=== PATIENT | male | born 1940 | race Caucasian/White ===

== ENCOUNTER 2023-06-11 13:59 | Outpatient (CLI) | payer OTHER | END 2023-06-11 14:00 | disposition home or self-care (01) | LOC: CSHLAB 13:59 | PROVIDERS: ATTEND Orthopaedic Surgery | DX: Z01.818 Encounter for other preprocedural examination (principal); M46.1 Sacroiliitis, not elsewhere classified | CPT/HCPCS: 93005; 93010 ==

== ENCOUNTER 2023-06-13 05:47 | Inpatient (IN) | payer OTHER ==
[2023-06-11 15:07] VITALS: BMI 28.0
[2023-06-13] MEDS ORDERED: Bupivacaine 0.25% HCL 30 ML VIAL ONE (06:28)
[2023-06-13] MEDS ORDERED: EPINEPHrine 1 MG/ML AMP ONE (06:28)
[2023-06-13] MEDS ORDERED: Famotidine/PF 20 mg/2ml Vial ONE (07:17)
[2023-06-13] MEDS ORDERED: PROPOFOL 20 ML ONE (07:18)
[2023-06-13] MEDS ORDERED: Fentanyl 250 MCG/5 ML VIAL ONE (07:19)
[2023-06-13] MEDS ORDERED: Succinylcholine 200 MG/10 ml SYRINGE FS ONE (07:21)
[2023-06-13] MEDS ORDERED: Ketamine 50 MG/ML (10ML VIAL) ONE (07:23)
[2023-06-13] MEDS ORDERED: Propofol 1,000 MG/100 ML VIAL IV ONE (07:24)
[2023-06-13] MEDS ORDERED: Phenylephrine 10 MG/ML VIAL ONE (07:24)
[2023-06-13 07:26] LABS: Hemoglobin 12.1 g/dL (13.5-17.5); Mean Corpuscular HGB CONC 33.8 g/dL (32.0-36.0); Mean Corpuscular Hemoglobin 31.6 pg (27.0-33.0); Mean Corpuscular Volume 93.5 fl (81.2-95.1); Mean Platelet Volume 8.9 fl (7.4-10.4); Platelet Count 204 10x3/uL (150-450); RBC Distribution Width 13.3 % (11.5-14.5); Red Blood Cell (RBC) Count 3.83 10x6/uL (4.32-5.72)
[2023-06-13] MEDS ORDERED: Clindamycin/D5W 900 mg/50 ml Premix Bag ONE (07:35)
[2023-06-13 07:37] LABS: PTT 27.6 sec (22.0-33.0); Prothrombin Time 10.6 sec (9.5-12.1)
[2023-06-13 07:42] LABS: Anion Gap 14 mmol/L (10-20); BUN (Urea Nitrogen) 10 mg/dL (8.4-25.7); Calc. Creatinine Clearance 90 mL/min (70-130); Calcium 8.7 mg/dL (7.8-10.44); Carbon Dioxide 24 mmol/L (23-31); Chloride 103 mmol/L (98-107); Estimated GFR 86; Glucose 98 mg/dL (83-110); Sodium 138 mmol/L (136-145)
[2023-06-13] MEDS ORDERED: Ondansetron PF 4 MG/2 ML Vial ONE ×2 (07:43→12:02)
[2023-06-13] MEDS ORDERED: ePHEDrine Sulfate 50 MG/10 ML VIAL ONE (08:21)
[2023-06-13] MEDS ORDERED: Dexamethasone 20 MG/5 ML VIAL ONE (08:23)
[2023-06-13] MEDS ORDERED: PHENYLEPHRINE-NS 100 MCG/ML 10 ML SYRINGE ONE ×2 (08:52→09:24)
[2023-06-13] MEDS ORDERED: Albumin 25% 25 GM/100 ML BOT IVPB SCH (09:30)
[2023-06-13] MEDS ORDERED: Vasopressin 20 UNITS/ML VIAL ONE ×2 (09:35→09:38)
[2023-06-13] MEDS ORDERED: TETANUS, DIPHTHERIA TOX,ADULT (TDVAX) 0.5 ML VIAL IM ONE ×2 (09:55→15:45)
[2023-06-13] MEDS ORDERED: Metoclopramide HCl 10 MG TAB PO PRN (09:59)
[2023-06-13] MEDS ORDERED: Acetaminophen 500 MG TAB PO PRN (09:59)
[2023-06-13] MEDS ORDERED: Communication Order-Pharmacy FS SCH (10:00)
[2023-06-13] MEDS ORDERED: HYDROmorphone 0.5 MG/0.5 ML SYRINGE ONE ×2 (10:43→11:16)
[2023-06-13] MEDS: Trihexyphenidyl 2 MG TAB PO SCH ×2 (15:59→19:59)
[2023-06-13] MEDS: Clindamycin/D5W 600 MG in Premix Bag 1 BAG IVPB SCH (16:05)
[2023-06-13] MEDS: Morphine 4 MG/ML VIAL SLOW IVP PRN ×2 (17:52→19:51)
[2023-06-13] MEDS: Aspirin 81 mg Enteric Coated Tablet PO SCH (19:58)
[2023-06-13] MEDS: Tamsulosin HCl 0.4 MG CAP PO SCH (19:58)
[2023-06-13] MEDS ORDERED: Famotidine 20 MG TAB PO SCH (21:00)
[2023-06-13] MEDS: HYDROcodone/Acetaminophen 10/325 mg Tablet PO PRN (21:25)
[2023-06-14] MEDS: Clindamycin/D5W 600 MG in Premix Bag 1 BAG IVPB SCH (00:03)
[2023-06-14] MEDS: Morphine 4 MG/ML VIAL SLOW IVP PRN ×2 (03:06→05:06)
[2023-06-14] MEDS ORDERED: Potassium Bicarbonate/Cit Ac 20 MEQ TAB PO SCH (08:15)
[2023-06-14] MEDS: Potassium Chloride 20 MEQ in Premix Bag 1 BAG IVPB SCH ×2 (08:26→09:57)
[2023-06-14] MEDS: Amiodarone 200 MG TAB PO SCH (08:26)
[2023-06-14] MEDS: Trihexyphenidyl 2 MG TAB PO SCH ×3 (08:27→22:31)
[2023-06-14] MEDS: Aspirin 81 mg Enteric Coated Tablet PO SCH ×2 (08:27→22:30)
[2023-06-14] MEDS: Dicyclomine 10 MG CAP PO PRN (08:27)
[2023-06-14] MEDS: Tamsulosin HCl 0.4 MG CAP PO SCH (22:30)
[2023-06-15] MEDS: Morphine 4 MG/ML VIAL SLOW IVP PRN ×4 (03:02→21:00)
[2023-06-15 06:41] LABS: Anion Gap 14 mmol/L (10-20); BUN (Urea Nitrogen) 16 mg/dL (8.4-25.7); Calc. Creatinine Clearance 76 mL/min (70-130); Calcium 8.2 mg/dL (7.8-10.44); Carbon Dioxide 23 mmol/L (23-31); Chloride 105 mmol/L (98-107); Estimated GFR 71; Glucose 107 mg/dL (83-110); Sodium 138 mmol/L (136-145)
[2023-06-15] MEDS: Amiodarone 200 MG TAB PO SCH (08:17)
[2023-06-15] MEDS: Dicyclomine 10 MG CAP PO PRN (08:17)
[2023-06-15] MEDS: Trihexyphenidyl 2 MG TAB PO SCH ×3 (08:17→20:50)
[2023-06-15] MEDS: Aspirin 81 mg Enteric Coated Tablet PO SCH ×2 (08:17→20:50)
[2023-06-15] MEDS: Tamsulosin HCl 0.4 MG CAP PO SCH (20:50)
[2023-06-16] MEDS: HYDROcodone/Acetaminophen 10/325 mg Tablet PO PRN ×3 (01:06→17:32)
[2023-06-16] MEDS: Aspirin 81 mg Enteric Coated Tablet PO SCH ×2 (10:12→21:07)
[2023-06-16] MEDS: Amiodarone 200 MG TAB PO SCH (10:12)
[2023-06-16] MEDS: Trihexyphenidyl 2 MG TAB PO SCH ×3 (10:13→21:07)
[2023-06-16] MEDS: Tamsulosin HCl 0.4 MG CAP PO SCH (21:06)
[2023-06-16] MEDS: Morphine 4 MG/ML VIAL SLOW IVP PRN (21:06)
[2023-06-16] MEDS: Apixaban 5 MG TAB PO SCH (21:07)
[2023-06-17 04:54] LABS: Hemoglobin 7.6 g/dL (13.5-17.5); Mean Corpuscular Hemoglobin 31.5 pg (27.0-33.0); Mean Corpuscular Volume 95.4 fl (81.2-95.1); Mean Platelet Volume 8.8 fl (7.4-10.4); Platelet Count 179 10x3/uL (150-450); RBC Distribution Width 13.6 % (11.5-14.5); Red Blood Cell (RBC) Count 2.41 10x6/uL (4.32-5.72); White Blood Cell (WBC) Count 6.5 10x3/uL (3.5-10.5)
[2023-06-17 05:10] LABS: Anion Gap 12 mmol/L (10-20); BUN (Urea Nitrogen) 12 mg/dL (8.4-25.7); Calc. Creatinine Clearance 95 mL/min (70-130); Calcium 7.9 mg/dL (7.8-10.44); Carbon Dioxide 26 mmol/L (23-31); Chloride 101 mmol/L (98-107); Estimated GFR 87; Glucose 107 mg/dL (83-110); Sodium 135 mmol/L (136-145)
[2023-06-17] MEDS: Amiodarone 200 MG TAB PO SCH (09:07)
[2023-06-17 09:18] LABS: Hemoglobin 8.6 g/dL (13.5-17.5)
[2023-06-17] MEDS: Apixaban 5 MG TAB PO SCH ×2 (10:08→21:57)
[2023-06-17] MEDS: Trihexyphenidyl 2 MG TAB PO SCH ×3 (10:09→21:57)
[2023-06-17] MEDS: Aspirin 81 mg Enteric Coated Tablet PO SCH ×2 (10:09→21:57)
[2023-06-17] MEDS: Tamsulosin HCl 0.4 MG CAP PO SCH (21:57)
[2023-06-18 04:15] LABS: Hemoglobin 7.7 g/dL (13.5-17.5); Mean Corpuscular HGB CONC 33.3 g/dL (32.0-36.0); Mean Corpuscular Hemoglobin 31.3 pg (27.0-33.0); Mean Corpuscular Volume 93.9 fl (81.2-95.1); Mean Platelet Volume 8.5 fl (7.4-10.4); Platelet Count 192 10x3/uL (150-450); RBC Distribution Width 13.7 % (11.5-14.5); Red Blood Cell (RBC) Count 2.46 10x6/uL (4.32-5.72); White Blood Cell (WBC) Count 7.3 10x3/uL (3.5-10.5)
[2023-06-18 04:29] LABS: Anion Gap 10 mmol/L (10-20); BUN (Urea Nitrogen) 13 mg/dL (8.4-25.7); Calc. Creatinine Clearance 109 mL/min (70-130); Carbon Dioxide 27 mmol/L (23-31); Chloride 99 mmol/L (98-107); Estimated GFR 91; Glucose 106 mg/dL (83-110); Potassium 3.9 mmol/L (3.5-5.1); Sodium 132 mmol/L (136-145)
[2023-06-18] MEDS: Aspirin 81 mg Enteric Coated Tablet PO SCH (10:34)
[2023-06-18] MEDS: Amiodarone 200 MG TAB PO SCH (10:34)
[2023-06-18] MEDS: Apixaban 5 MG TAB PO SCH (10:34)
[2023-06-18] MEDS: Trihexyphenidyl 2 MG TAB PO SCH (10:34)
[2023-06-18 12:43] VITALS: BP 149/68; TEMP 98.4
== END 2023-06-18 15:02 | DRG 552 ==
LOC: CSHSDC 05:47 → CSHTELE 09:55 → OBSVTOIN 06-16 14:38
PROVIDERS: ADMIT Orthopaedic Surgery; ATTEND Orthopaedic Surgery
DX: M46.1 Sacroiliitis, not elsewhere classified (principal); N40.0 Benign prostatic hyperplasia without lower urinary tract symptoms; I10 Essential (primary) hypertension; G43.909 Migraine, unspecified, not intractable, without status migrainosus; Z96.652 Presence of left artificial knee joint; I25.10 Atherosclerotic heart disease of native coronary artery without angina pectoris; R25.1 Tremor, unspecified; F17.210 Nicotine dependence, cigarettes, uncomplicated; E87.6 Hypokalemia; D64.9 Anemia, unspecified; R60.0 Localized edema; Z88.0 Allergy status to penicillin; Z88.8 Allergy status to other drugs, medicaments and biological substances; Z79.01 Long term (current) use of anticoagulants; Z79.899 Other long term (current) drug therapy; Z95.0 Presence of cardiac pacemaker
CPT/HCPCS: 36415; 72202; 80048; 85027; 85610; 85730; 86850; 86900; 86901; 90714; 94760; 94762; C1713; C1889; J0171; J1100; J1170; J2270; J2370; J2405; J2704; J3010; J3480; J3490; P9045; P9047; S0020; S0028

== ENCOUNTER 2023-07-09 10:02 | Inpatient (IN) | payer OTHER ==
[~2023-07-09 10:02] MED LIST: Iopamidol 370 76% 100 ML VIAL ONE
[2023-07-09] MEDS ORDERED: Nitroglycerin 50 MG/250 ML BOT 0 ML ONE (10:12)
[2023-07-09] MEDS ORDERED: Lidocaine 1% (PF) 30 ML VIAL ONE (10:12)
[2023-07-09] MEDS ORDERED: Heparin 10,000 UNITS/ 10 ML VIAL ONE (10:12)
[2023-07-09] MEDS ORDERED: Adenosine 6 MG/2 ML VIAL ONE (10:12)
[2023-07-09] MEDS ORDERED: Atropine Sulfate 0.4 mg/1 ml Vial ONE (10:13)
[2023-07-09 10:33] LABS: Red Blood Cell (RBC) Count 3.36 10x6/uL (4.32-5.72); White Blood Cell (WBC) Count 5.1 10x3/uL (3.5-10.5)
[2023-07-09 10:34] LABS: #Monocytes 0.3 10x3/uL (0.0-1.1); #Neutrophils 4.2 10x3/uL (1.5-8.4); %Basophils 0.4 % (0.0-2.0); %Eosinophils 0.2 % (0.0-6.0); %Monocytes 6.7 % (0.0-10.0); %Neutrophils 82.1 % (40.0-75.0); Hematocrit 31.3 % (38.8-50.0); Hemoglobin 10.3 g/dL (13.5-17.5); Mean Corpuscular HGB CONC 32.9 g/dL (32.0-36.0); Mean Corpuscular Hemoglobin 30.7 pg (27.0-33.0); Mean Corpuscular Volume 93.2 fl (81.2-95.1); Mean Platelet Volume 8.6 fl (7.4-10.4); Platelet Count 231 10x3/uL (150-450); RBC Distribution Width 14.6 % (11.5-14.5)
[2023-07-09 10:38] LABS: ALT (SGPT) 24 U/L (8-55); AST (SGOT) 33 U/L (5-34); Albumin 3.2 g/dL (3.4-4.8); Alkaline Phosphatase 115 U/L (40-110); Anion Gap 15 mmol/L (10-20); BUN (Urea Nitrogen) 8 mg/dL (8.4-25.7); Bilirubin, Total 0.8 mg/dL (0.2-1.2); Calc. Creatinine Clearance 0 mL/min (70-130); Calcium 8.1 mg/dL (7.8-10.44); Carbon Dioxide 22 mmol/L (23-31); Chloride 101 mmol/L (98-107); Estimated GFR 87; Globulin 2.4 g/dL (2.4-3.5); Glucose 156 mg/dL (83-110); Potassium 3.9 mmol/L (3.5-5.1); Protein, Total 5.6 g/dL (5.8-8.1); Sodium 134 mmol/L (136-145)
[2023-07-09] MEDS ORDERED: Senokot S 8.6-50 MG TAB PO PRN (14:30)
[2023-07-09] MEDS ORDERED: Sodium Chloride 0.9% 1,000 ML IV SCH (14:30)
[2023-07-09] MEDS ORDERED: Nitroglycerin 0.4 MG TAB (25 Tab Bottle) SL PRN (14:32)
[2023-07-09] MEDS ORDERED: Acetaminophen 500 MG TAB PO PRN (17:50)
[2023-07-09] MEDS ORDERED: Electrolyte Replacement Protocol 1 EACH FS SCH (18:00)
[2023-07-09] MEDS ORDERED: Acetaminophen/Codeine 30-300mg Tablet ONE ×2 (18:12→23:34)
[2023-07-09] MEDS ORDERED: Bacitracin 1 PK ONE (18:27)
[2023-07-09 18:44] LABS: Troponin I 0.026 ng/mL (< 0.028)
[2023-07-09] MEDS ORDERED: Famotidine 20 MG TAB PO SCH ×2 (21:00→22:45)
[2023-07-09] MEDS ORDERED: Dextrose 50% Abboject 50 ML SYRINGE ONE (21:05)
[2023-07-09] MEDS ORDERED: Calcium Gluc 4.6 MEQ/10 ML (100 MG/ML) ONE (21:48)
[2023-07-09] MEDS ORDERED: Sodium Bicarb 50 MEQ/50 ML Abboject 8.4% SYRINGE ONE (21:48)
[2023-07-09] MEDS ORDERED: Sodium Bicarb 50 MEQ/50 ML VIAL ONE (21:49)
[2023-07-09] MEDS ORDERED: Apixaban 5 MG TAB ONE (22:09)
[2023-07-09] MEDS ORDERED: Tamsulosin HCl 0.4 MG CAP ONE (22:10)
[2023-07-09] MEDS ORDERED: Famotidine 20 MG TAB ONE (22:10)
[2023-07-09] MEDS ORDERED: Metoprolol Tartrate 25 MG TAB ONE (22:12)
[2023-07-09] MEDS ORDERED: Metoprolol Tartrate 25 MG TAB PO SCH (22:30)
[2023-07-09] MEDS ORDERED: Trihexyphenidyl 2 MG TAB PO SCH (22:45)
[2023-07-09] MEDS ORDERED: Apixaban 5 MG TAB PO SCH (22:45)
[2023-07-09 23:00] LABS: Magnesium 1.8 mg/dL (1.6-2.6); Potassium 4.3 mmol/L (3.5-5.1)
[2023-07-09] MEDS: Tamsulosin HCl 0.4 MG CAP PO SCH (23:29)
[2023-07-09] MEDS: Acetaminophen/Codeine 30-300mg Tablet PO PRN (23:36)
[2023-07-09] MEDS ORDERED: Magnesium Sulfate/D5W 1 GM/100 ML BAG IVPB SCH (23:45)
[2023-07-10] MEDS ORDERED: Ondansetron PF 4 MG/2 ML Vial ONE (04:06)
[2023-07-10 04:17] VITALS: BMI 27.6
[2023-07-10] MEDS: Ondansetron ODT 4 MG TAB PO PRN ×2 (04:25→18:04)
[2023-07-10] MEDS: Ondansetron PF 4 MG/2 ML Vial IVP PRN ×2 (04:26→14:10)
[2023-07-10] MEDS ORDERED: Acetaminophen/Codeine 30-300mg Tablet ONE (05:43)
[2023-07-10] MEDS: Acetaminophen/Codeine 30-300mg Tablet PO PRN (06:20)
[2023-07-10] MEDS ORDERED: Apixaban 5 MG TAB PO SCH (09:00)
[2023-07-10] MEDS ORDERED: Apixaban 5 MG TAB ONE (09:34)
[2023-07-10] MEDS ORDERED: Metoprolol Tartrate 25 MG TAB ONE (09:34)
[2023-07-10] MEDS ORDERED: Famotidine 20 MG TAB ONE (09:35)
[2023-07-10 09:50] LABS: Bilirubin Neg (Negative); Blood, Urine 150 (Negative); Clarity Clear (Clear); Glucose, Urine (Dipstick) Normal (Negative); Ketone, Urine 5 mg/dL (Negative); Leukocyte Negative (Negative); Nitrite Negative (Negative); Protein, Urine (Dipstick) 15 mg/dl (Neg-Trace)
[2023-07-10 09:57] LABS: RBC/HPF 0-3 HPF (0-3); WBC/HPF 0-3 HPF (0-3)
[2023-07-10 09:58] LABS: Bacteria/HPF Rare-Few HPF (None Seen); Squamous Epithelial None Seen HPF (0-3)
[2023-07-10] MEDS: Famotidine 20 MG TAB PO SCH ×2 (10:04→21:17)
[2023-07-10] MEDS: Amiodarone 200 MG TAB PO SCH (10:04)
[2023-07-10] MEDS: Trihexyphenidyl 2 MG TAB PO SCH ×3 (10:06→21:16)
[2023-07-10] MEDS ORDERED: Communication Order-Pharmacy FS PRN (12:53)
[2023-07-10] MEDS: Tamsulosin HCl 0.4 MG CAP PO SCH (21:17)
[2023-07-11 04:58] LABS: #Monocytes 0.6 10x3/uL (0.0-1.1); #Neutrophils 4.7 10x3/uL (1.5-8.4); %Basophils 0.3 % (0.0-2.0); %Eosinophils 0.7 % (0.0-6.0); %Lymphocytes 7.7 % (18.0-47.0); %Monocytes 10.7 % (0.0-10.0); %Neutrophils 80.3 % (40.0-75.0); Hematocrit 28.1 % (38.8-50.0); Hemoglobin 9.1 g/dL (13.5-17.5); Mean Corpuscular HGB CONC 32.4 g/dL (32.0-36.0); Mean Corpuscular Hemoglobin 30.6 pg (27.0-33.0); Mean Corpuscular Volume 94.6 fl (81.2-95.1); Mean Platelet Volume 8.7 fl (7.4-10.4); Platelet Count 185 10x3/uL (150-450); RBC Distribution Width 14.9 % (11.5-14.5); Red Blood Cell (RBC) Count 2.97 10x6/uL (4.32-5.72); White Blood Cell (WBC) Count 5.8 10x3/uL (3.5-10.5)
[2023-07-11 05:10] LABS: Anion Gap 14 mmol/L (10-20); BUN (Urea Nitrogen) 9 mg/dL (8.4-25.7); Calc. Creatinine Clearance 102 mL/min (70-130); Calcium 8.2 mg/dL (7.8-10.44); Carbon Dioxide 22 mmol/L (23-31); Chloride 103 mmol/L (98-107); Estimated GFR 90; Glucose 97 mg/dL (83-110); Potassium 3.9 mmol/L (3.5-5.1); Sodium 135 mmol/L (136-145)
[2023-07-11] MEDS: Acetaminophen/Codeine 30-300mg Tablet PO PRN ×2 (08:13→23:44)
[2023-07-11] MEDS: Amiodarone 200 MG TAB PO SCH (08:14)
[2023-07-11] MEDS: Famotidine 20 MG TAB PO SCH ×2 (08:14→23:30)
[2023-07-11] MEDS: Trihexyphenidyl 2 MG TAB PO SCH ×3 (08:15→23:29)
[2023-07-11] MEDS ORDERED: Iopamidol 300 61% 100 ML VIAL FS ONE (09:16)
[2023-07-11] MEDS: Lidocaine/Transparent Dressing 1 EACH KIT TP PRN ×2 (11:12→23:29)
[2023-07-11] MEDS: Ondansetron ODT 4 MG TAB PO PRN (13:12)
[2023-07-11] MEDS: Morphine 2 MG/ML VIAL SLOW IVP PRN (13:12)
[2023-07-11] MEDS ORDERED: Heparin 10,000 UNITS/ 10 ML VIAL ONE (16:53)
[2023-07-11] MEDS ORDERED: Nitroglycerin 50 MG/250 ML BOT 250 ML ONE (16:53)
[2023-07-11] MEDS ORDERED: Lidocaine 1% (PF) 30 ML VIAL ONE (16:53)
[2023-07-11] MEDS ORDERED: Sodium Chloride 0.9% 1,000 ML ONE (16:54)
[2023-07-11] MEDS ORDERED: Adenosine 6 MG/2 ML VIAL ONE (16:54)
[2023-07-11] MEDS ORDERED: fentaNYL 50 mcg/mL 1 mL Vial ONE ×2 (16:55→18:23)
[2023-07-11] MEDS ORDERED: Midazolam HCl 2 mg/2 ml Vial ONE (16:55)
[2023-07-11] MEDS ORDERED: Midazolam HCl 5 mg/5 ml Vial ONE (18:26)
[2023-07-11] MEDS ORDERED: Clopidogrel Bisulfate 300 MG TAB ONE (18:58)
[2023-07-11] MEDS ORDERED: VANCOMYCIN 2 GRAM/400 ML BAG 2 GM in Premix Bag 1 BAG IVPB SCH (23:00)
[2023-07-11] MEDS: Tamsulosin HCl 0.4 MG CAP PO SCH (23:30)
[2023-07-11] MEDS: Atorvastatin Calcium 40 MG TAB PO SCH (23:30)
[2023-07-12] MEDS: Morphine 2 MG/ML VIAL SLOW IVP PRN ×4 (01:16→16:56)
[2023-07-12] MEDS: Ondansetron ODT 4 MG TAB PO PRN ×2 (04:25→22:06)
[2023-07-12] MEDS ORDERED: Aspirin 81 mg Enteric Coated Tablet PO SCH ×2 (09:00)
[2023-07-12] MEDS: Vancomycin HCl 1 GM in Sodium Chloride 0.9% 250 ML 250 ML IVPB SCH (10:33)
[2023-07-12] MEDS: Clopidogrel Bisulfate 75 MG TAB PO SCH (10:34)
[2023-07-12] MEDS: Amiodarone 200 MG TAB PO SCH (10:34)
[2023-07-12] MEDS: Famotidine 20 MG TAB PO SCH ×2 (10:35→21:43)
[2023-07-12] MEDS: Trihexyphenidyl 2 MG TAB PO SCH ×3 (10:36→21:44)
[2023-07-12] MEDS: Acetaminophen/Codeine 30-300mg Tablet PO PRN ×3 (10:58→22:06)
[2023-07-12] MEDS: Lidocaine/Transparent Dressing 1 EACH KIT TP PRN ×2 (12:06→21:44)
[2023-07-12] MEDS ORDERED: Apixaban 5 MG TAB PO SCH (21:00)
[2023-07-12] MEDS: Tamsulosin HCl 0.4 MG CAP PO SCH (21:42)
[2023-07-12] MEDS: Cefepime 2 GM in Sodium Chloride 0.9% 100 ML IVPB SCH (21:42)
[2023-07-12] MEDS: Atorvastatin Calcium 40 MG TAB PO SCH (21:43)
[2023-07-13] MEDS: Vancomycin HCl 1 GM in Sodium Chloride 0.9% 250 ML 250 ML IVPB SCH ×2 (00:10→16:46)
[2023-07-13] MEDS: Morphine 2 MG/ML VIAL SLOW IVP PRN (04:30)
[2023-07-13] MEDS: Acetaminophen/Codeine 30-300mg Tablet PO PRN (04:31)
[2023-07-13] MEDS: Ondansetron ODT 4 MG TAB PO PRN (04:31)
[2023-07-13 05:33] LABS: Hematocrit 20.5 % (38.8-50.0); Hemoglobin 6.6 g/dL (13.5-17.5); Mean Corpuscular HGB CONC 32.2 g/dL (32.0-36.0); Mean Corpuscular Hemoglobin 30.6 pg (27.0-33.0); Mean Corpuscular Volume 94.9 fl (81.2-95.1); Mean Platelet Volume 8.6 fl (7.4-10.4); Platelet Count 173 10x3/uL (150-450); Red Blood Cell (RBC) Count 2.16 10x6/uL (4.32-5.72); White Blood Cell (WBC) Count 8.8 10x3/uL (3.5-10.5)
[2023-07-13 05:48] LABS: Anion Gap 17 mmol/L (10-20); BUN (Urea Nitrogen) 18 mg/dL (8.4-25.7); Calc. Creatinine Clearance 87 mL/min (70-130); Calcium 7.9 mg/dL (7.8-10.44); Carbon Dioxide 19 mmol/L (23-31); Chloride 106 mmol/L (98-107); Estimated GFR 84; Glucose 114 mg/dL (83-110); Sodium 138 mmol/L (136-145)
[2023-07-13] MEDS: Amiodarone 200 MG TAB PO SCH (09:23)
[2023-07-13] MEDS: Clopidogrel Bisulfate 75 MG TAB PO SCH (09:23)
[2023-07-13] MEDS: Cefepime 2 GM in Sodium Chloride 0.9% 100 ML IVPB SCH ×2 (09:23→21:00)
[2023-07-13] MEDS: Trihexyphenidyl 2 MG TAB PO SCH ×3 (09:24→21:00)
[2023-07-13] MEDS: Famotidine 20 MG TAB PO SCH ×2 (09:24→21:04)
[2023-07-13] MEDS: Ondansetron PF 4 MG/2 ML Vial IVP PRN ×2 (09:31→21:11)
[2023-07-13 10:09] LABS: Vancomycin, Trough 19.8 ug/mL
[2023-07-13] MEDS ORDERED: Bisacodyl 10 MG SUPP PR SCH (12:30)
[2023-07-13 19:49] LABS: Hematocrit 23.4 % (38.8-50.0); Hemoglobin 7.8 g/dL (13.5-17.5); Mean Corpuscular HGB CONC 33.3 g/dL (32.0-36.0); Mean Corpuscular Hemoglobin 31.1 pg (27.0-33.0); Mean Corpuscular Volume 93.2 fl (81.2-95.1); Mean Platelet Volume 8.8 fl (7.4-10.4); Platelet Count 175 10x3/uL (150-450); RBC Distribution Width 16.2 % (11.5-14.5); Red Blood Cell (RBC) Count 2.51 10x6/uL (4.32-5.72); White Blood Cell (WBC) Count 9.7 10x3/uL (3.5-10.5)
[2023-07-13] MEDS: Atorvastatin Calcium 40 MG TAB PO SCH (21:00)
[2023-07-13] MEDS: Tamsulosin HCl 0.4 MG CAP PO SCH (21:00)
[2023-07-14 05:06] LABS: Hematocrit 22.1 % (38.8-50.0); Hemoglobin 7.2 g/dL (13.5-17.5); Mean Corpuscular HGB CONC 32.6 g/dL (32.0-36.0); Mean Corpuscular Hemoglobin 29.9 pg (27.0-33.0); Mean Corpuscular Volume 91.7 fl (81.2-95.1); Mean Platelet Volume 8.6 fl (7.4-10.4); Platelet Count 172 10x3/uL (150-450); RBC Distribution Width 16.4 % (11.5-14.5); Red Blood Cell (RBC) Count 2.41 10x6/uL (4.32-5.72); White Blood Cell (WBC) Count 8.2 10x3/uL (3.5-10.5)
[2023-07-14 05:12] LABS: Anion Gap 16 mmol/L (10-20); BUN (Urea Nitrogen) 22 mg/dL (8.4-25.7); Calc. Creatinine Clearance 94 mL/min (70-130); Calcium 8.2 mg/dL (7.8-10.44); Carbon Dioxide 19 mmol/L (23-31); Chloride 106 mmol/L (98-107); Estimated GFR 87; Glucose 108 mg/dL (83-110); Potassium 4.4 mmol/L (3.5-5.1); Sodium 137 mmol/L (136-145)
[2023-07-14] MEDS: Ondansetron PF 4 MG/2 ML Vial IVP PRN ×2 (06:51→13:17)
[2023-07-14] MEDS: Morphine 2 MG/ML VIAL SLOW IVP PRN ×2 (06:54→13:16)
[2023-07-14] MEDS: Trihexyphenidyl 2 MG TAB PO SCH ×3 (09:42→20:31)
[2023-07-14] MEDS: Aspirin 81 mg Enteric Coated Tablet PO SCH (09:43)
[2023-07-14] MEDS: Amiodarone 200 MG TAB PO SCH (09:43)
[2023-07-14] MEDS: Clopidogrel Bisulfate 75 MG TAB PO SCH (09:43)
[2023-07-14] MEDS: Famotidine 20 MG TAB PO SCH ×2 (09:43→20:30)
[2023-07-14] MEDS: Cefepime 2 GM in Sodium Chloride 0.9% 100 ML IVPB SCH ×2 (09:43→20:25)
[2023-07-14] MEDS: Acetaminophen/Codeine 30-300mg Tablet PO PRN (09:59)
[2023-07-14] MEDS ORDERED: Vancomycin 1 GM VIAL ONE (11:22)
[2023-07-14] MEDS: Vancomycin HCl 1 GM in Sodium Chloride 0.9% 250 ML 250 ML IVPB SCH (11:24)
[2023-07-14 12:22] LABS: Hematocrit 20.3 % (38.8-50.0); Hemoglobin 6.7 g/dL (13.5-17.5)
[2023-07-14] MEDS: Atorvastatin Calcium 40 MG TAB PO SCH (20:30)
[2023-07-14] MEDS: Tamsulosin HCl 0.4 MG CAP PO SCH (20:30)
[2023-07-14 23:13] LABS: Hematocrit 26.7 % (38.8-50.0); Hemoglobin 9.1 g/dL (13.5-17.5)
[2023-07-15 04:48] LABS: Mean Corpuscular HGB CONC 34.6 g/dL (32.0-36.0); Mean Corpuscular Volume 89.7 fl (81.2-95.1); Mean Platelet Volume 8.5 fl (7.4-10.4); Platelet Count 166 10x3/uL (150-450); RBC Distribution Width 15.7 % (11.5-14.5)
[2023-07-15 05:05] LABS: Vancomycin, Trough 16.6 ug/mL
[2023-07-15] MEDS: Vancomycin HCl 1 GM in Sodium Chloride 0.9% 250 ML 250 ML IVPB SCH ×2 (06:45→22:41)
[2023-07-15] MEDS: Acetaminophen 325 MG TAB PO PRN (07:51)
[2023-07-15] MEDS: Clopidogrel Bisulfate 75 MG TAB PO SCH (08:47)
[2023-07-15] MEDS: Trihexyphenidyl 2 MG TAB PO SCH ×3 (08:47→22:41)
[2023-07-15] MEDS: Aspirin 81 mg Enteric Coated Tablet PO SCH (08:47)
[2023-07-15] MEDS: Amiodarone 200 MG TAB PO SCH (08:47)
[2023-07-15] MEDS: Cefepime 2 GM in Sodium Chloride 0.9% 100 ML IVPB SCH ×2 (08:48→22:40)
[2023-07-15 13:22] LABS: Hematocrit 26.4 % (38.8-50.0)
[2023-07-15] MEDS: Atorvastatin Calcium 40 MG TAB PO SCH (22:41)
[2023-07-15] MEDS: Tamsulosin HCl 0.4 MG CAP PO SCH (22:41)
[2023-07-15] MEDS: Acetaminophen/Codeine 30-300mg Tablet PO PRN (22:50)
[2023-07-16 05:50] LABS: Anion Gap 11 mmol/L (10-20); BUN (Urea Nitrogen) 18 mg/dL (8.4-25.7); Calc. Creatinine Clearance 116 mL/min (70-130); Calcium 7.7 mg/dL (7.8-10.44); Carbon Dioxide 21 mmol/L (23-31); Chloride 108 mmol/L (98-107); Estimated GFR 93; Glucose 100 mg/dL (83-110); Potassium 3.7 mmol/L (3.5-5.1); Sodium 136 mmol/L (136-145)
[2023-07-16 06:30] LABS: Hematocrit 25.3 % (38.8-50.0); Hemoglobin 8.5 g/dL (13.5-17.5); Mean Corpuscular HGB CONC 33.6 g/dL (32.0-36.0); Mean Corpuscular Hemoglobin 30.2 pg (27.0-33.0); Mean Platelet Volume 8.8 fl (7.4-10.4); Platelet Count 165 10x3/uL (150-450); Red Blood Cell (RBC) Count 2.81 10x6/uL (4.32-5.72); White Blood Cell (WBC) Count 5.5 10x3/uL (3.5-10.5)
[2023-07-16] MEDS: Cefepime 2 GM in Sodium Chloride 0.9% 100 ML IVPB SCH ×2 (08:59→22:46)
[2023-07-16] MEDS: Aspirin 81 mg Enteric Coated Tablet PO SCH (09:00)
[2023-07-16] MEDS: Amiodarone 200 MG TAB PO SCH (09:00)
[2023-07-16] MEDS: Clopidogrel Bisulfate 75 MG TAB PO SCH (09:00)
[2023-07-16] MEDS: Magnesium Oxide 400 MG TAB PO SCH (09:00)
[2023-07-16] MEDS: Trihexyphenidyl 2 MG TAB PO SCH ×3 (09:13→22:49)
[2023-07-16] MEDS ORDERED: Bisacodyl 10 MG SUPP PR SCH (12:00)
[2023-07-16] MEDS: Acetaminophen/Codeine 30-300mg Tablet PO PRN ×2 (15:05→22:50)
[2023-07-16 16:34] LABS: Vancomycin, Trough 13.5 ug/mL
[2023-07-16] MEDS: Vancomycin HCl 1 GM in Sodium Chloride 0.9% 250 ML 250 ML IVPB SCH (18:13)
[2023-07-16] MEDS: Atorvastatin Calcium 40 MG TAB PO SCH (22:51)
[2023-07-16] MEDS: Tamsulosin HCl 0.4 MG CAP PO SCH (22:51)
[2023-07-16] MEDS: Morphine 4 MG/ML VIAL SLOW IVP PRN (23:00)
[2023-07-16] MEDS: Ondansetron PF 4 MG/2 ML Vial IVP PRN (23:00)
[2023-07-17 04:23] LABS: #Eosinphils 0.1 10x3/uL (0.0-0.5); #Monocytes 0.7 10x3/uL (0.0-1.1); #Neutrophils 5.2 10x3/uL (1.5-8.4); %Basophils 0.5 % (0.0-2.0); %Eosinophils 0.9 % (0.0-6.0); %Lymphocytes 6.8 % (18.0-47.0); %Monocytes 10.7 % (0.0-10.0); %Neutrophils 79.7 % (40.0-75.0); Hematocrit 25.1 % (38.8-50.0); Hemoglobin 8.2 g/dL (13.5-17.5); Mean Corpuscular HGB CONC 32.7 g/dL (32.0-36.0); Mean Corpuscular Hemoglobin 30.7 pg (27.0-33.0); Platelet Count 179 10x3/uL (150-450); Red Blood Cell (RBC) Count 2.67 10x6/uL (4.32-5.72); White Blood Cell (WBC) Count 6.5 10x3/uL (3.5-10.5)
[2023-07-17 04:41] LABS: ALT (SGPT) 23 U/L (8-55); AST (SGOT) 30 U/L (5-34); Albumin 2.4 g/dL (3.4-4.8); Alkaline Phosphatase 78 U/L (40-110); Anion Gap 12 mmol/L (10-20); BUN (Urea Nitrogen) 16 mg/dL (8.4-25.7); Calc. Creatinine Clearance 117 mL/min (70-130); Calcium 7.5 mg/dL (7.8-10.44); Carbon Dioxide 20 mmol/L (23-31); Chloride 108 mmol/L (98-107); Estimated GFR 93; Globulin 2.3 g/dL (2.4-3.5); Glucose 100 mg/dL (83-110); Potassium 3.8 mmol/L (3.5-5.1); Protein, Total 4.7 g/dL (5.8-8.1); Sodium 136 mmol/L (136-145)
[2023-07-17] MEDS: Cefepime 2 GM in Sodium Chloride 0.9% 100 ML IVPB SCH (08:26)
[2023-07-17] MEDS: Clopidogrel Bisulfate 75 MG TAB PO SCH (08:27)
[2023-07-17] MEDS: Aspirin 81 mg Enteric Coated Tablet PO SCH (08:27)
[2023-07-17] MEDS: Dicyclomine 10 MG CAP PO PRN (08:27)
[2023-07-17] MEDS: Amiodarone 200 MG TAB PO SCH (08:27)
[2023-07-17] MEDS: Magnesium Oxide 400 MG TAB PO SCH (08:28)
[2023-07-17] MEDS: Trihexyphenidyl 2 MG TAB PO SCH ×3 (08:29→21:43)
[2023-07-17] MEDS: Ondansetron PF 4 MG/2 ML Vial IVP PRN (08:36)
[2023-07-17] MEDS ORDERED: Bisacodyl 5 MG TAB PO SCH (09:30)
[2023-07-17] MEDS ORDERED: Senokot S 8.6-50 MG TAB PO PRN (09:31)
[2023-07-17] MEDS: Acetaminophen/Codeine 30-300mg Tablet PO PRN ×2 (09:36→21:43)
[2023-07-17] MEDS: Polyethylene Glycol 3350 17 GM Packet PO SCH (10:25)
[2023-07-17] MEDS: guaiFENesin ER 600 MG TAB PO SCH ×2 (10:25→21:43)
[2023-07-17] MEDS: Vancomycin HCl 1 GM in Sodium Chloride 0.9% 250 ML 250 ML IVPB SCH (11:26)
[2023-07-17] MEDS: Tamsulosin HCl 0.4 MG CAP PO SCH (21:43)
[2023-07-17] MEDS: Atorvastatin Calcium 40 MG TAB PO SCH (21:43)
[2023-07-18 04:17] LABS: #Eosinphils 0.1 10x3/uL (0.0-0.5); #Monocytes 0.8 10x3/uL (0.0-1.1); #Neutrophils 6.9 10x3/uL (1.5-8.4); %Basophils 0.4 % (0.0-2.0); %Lymphocytes 4.5 % (18.0-47.0); %Monocytes 9.1 % (0.0-10.0); Hematocrit 26.3 % (38.8-50.0); Hemoglobin 8.7 g/dL (13.5-17.5); Mean Corpuscular HGB CONC 33.1 g/dL (32.0-36.0); Mean Corpuscular Hemoglobin 30.6 pg (27.0-33.0); Mean Corpuscular Volume 92.6 fl (81.2-95.1); Mean Platelet Volume 8.9 fl (7.4-10.4); Platelet Count 198 10x3/uL (150-450); RBC Distribution Width 14.9 % (11.5-14.5); Red Blood Cell (RBC) Count 2.84 10x6/uL (4.32-5.72); White Blood Cell (WBC) Count 8.2 10x3/uL (3.5-10.5)
[2023-07-18 04:40] LABS: ALT (SGPT) 25 U/L (8-55); AST (SGOT) 31 U/L (5-34); Albumin 2.5 g/dL (3.4-4.8); Alkaline Phosphatase 85 U/L (40-110); Anion Gap 14 mmol/L (10-20); BUN (Urea Nitrogen) 12 mg/dL (8.4-25.7); Calc. Creatinine Clearance 121 mL/min (70-130); Calcium 7.9 mg/dL (7.8-10.44); Carbon Dioxide 20 mmol/L (23-31); Chloride 107 mmol/L (98-107); Estimated GFR 94; Globulin 2.5 g/dL (2.4-3.5); Glucose 99 mg/dL (83-110); Potassium 4.1 mmol/L (3.5-5.1); Sodium 137 mmol/L (136-145)
[2023-07-18] MEDS: Vancomycin HCl 1 GM in Sodium Chloride 0.9% 250 ML 250 ML IVPB SCH ×2 (06:01→21:55)
[2023-07-18] MEDS: Aspirin 81 mg Enteric Coated Tablet PO SCH (09:25)
[2023-07-18] MEDS: guaiFENesin ER 600 MG TAB PO SCH ×2 (09:25→21:55)
[2023-07-18] MEDS: Polyethylene Glycol 3350 17 GM Packet PO SCH (09:29)
[2023-07-18] MEDS: Magnesium Oxide 400 MG TAB PO SCH (09:30)
[2023-07-18] MEDS: Clopidogrel Bisulfate 75 MG TAB PO SCH (09:30)
[2023-07-18] MEDS: Amiodarone 200 MG TAB PO SCH (09:30)
[2023-07-18] MEDS: Trihexyphenidyl 2 MG TAB PO SCH ×3 (09:32→21:55)
[2023-07-18] MEDS: Acetaminophen/Codeine 30-300mg Tablet PO PRN (09:36)
[2023-07-18] MEDS ORDERED: Bisacodyl 10 MG SUPP PR SCH (12:45)
[2023-07-18] MEDS ORDERED: GoLYTELY 4,000 ml Bottle PO SCH (12:45)
[2023-07-18] MEDS ORDERED: Morphine 2 MG/ML VIAL SLOW IVP SCH (13:00)
[2023-07-18] MEDS: Senokot S 8.6-50 MG TAB PO SCH (21:54)
[2023-07-18] MEDS: Atorvastatin Calcium 40 MG TAB PO SCH (21:55)
[2023-07-18] MEDS: Tamsulosin HCl 0.4 MG CAP PO SCH (21:55)
[2023-07-18] MEDS: Morphine 4 MG/ML VIAL SLOW IVP PRN (21:57)
[2023-07-19 04:35] LABS: #Monocytes 1.1 10x3/uL (0.0-1.1); #Neutrophils 8.8 10x3/uL (1.5-8.4); %Basophils 0.2 % (0.0-2.0); %Eosinophils 0.4 % (0.0-6.0); %Lymphocytes 4.1 % (18.0-47.0); %Monocytes 10.1 % (0.0-10.0); %Neutrophils 83.7 % (40.0-75.0); Hemoglobin 9.3 g/dL (13.5-17.5); Mean Corpuscular HGB CONC 32.1 g/dL (32.0-36.0); Mean Corpuscular Hemoglobin 30.4 pg (27.0-33.0); Mean Corpuscular Volume 94.8 fl (81.2-95.1); Mean Platelet Volume 8.8 fl (7.4-10.4); Platelet Count 235 10x3/uL (150-450); Red Blood Cell (RBC) Count 3.06 10x6/uL (4.32-5.72); White Blood Cell (WBC) Count 10.5 10x3/uL (3.5-10.5)
[2023-07-19 04:56] LABS: ALT (SGPT) 26 U/L (8-55); AST (SGOT) 31 U/L (5-34); Albumin 2.6 g/dL (3.4-4.8); Alkaline Phosphatase 89 U/L (40-110); Anion Gap 17 mmol/L (10-20); BUN (Urea Nitrogen) 12 mg/dL (8.4-25.7); Bilirubin, Total 1.1 mg/dL (0.2-1.2); Calc. Creatinine Clearance 121 mL/min (70-130); Calcium 7.9 mg/dL (7.8-10.44); Carbon Dioxide 20 mmol/L (23-31); Chloride 104 mmol/L (98-107); Estimated GFR 94; Globulin 2.7 g/dL (2.4-3.5); Glucose 105 mg/dL (83-110); Potassium 3.5 mmol/L (3.5-5.1); Protein, Total 5.3 g/dL (5.8-8.1); Sodium 137 mmol/L (136-145)
[2023-07-19] MEDS ORDERED: Potassium Chloride 20 MEQ TAB PO SCH (08:00)
[2023-07-19] MEDS: Aspirin 81 mg Enteric Coated Tablet PO SCH (08:25)
[2023-07-19] MEDS: Ondansetron PF 4 MG/2 ML Vial IVP PRN ×2 (08:25→22:48)
[2023-07-19] MEDS: Trihexyphenidyl 2 MG TAB PO SCH ×3 (08:26→22:50)
[2023-07-19] MEDS: Senokot S 8.6-50 MG TAB PO SCH ×2 (08:26→22:48)
[2023-07-19] MEDS: Amiodarone 200 MG TAB PO SCH (08:27)
[2023-07-19] MEDS: Clopidogrel Bisulfate 75 MG TAB PO SCH (08:27)
[2023-07-19] MEDS: Polyethylene Glycol 3350 17 GM Packet PO SCH (08:28)
[2023-07-19] MEDS: guaiFENesin ER 600 MG TAB PO SCH ×2 (08:28→22:48)
[2023-07-19] MEDS ORDERED: HYDROcodone/Acetaminophen 5/325 mg Tablet PO SCH ×2 (09:00→18:15)
[2023-07-19 16:15] LABS: Vancomycin, Trough 10.4 ug/mL
[2023-07-19] MEDS ORDERED: Vancomycin 1 GM VIAL ONE (16:16)
[2023-07-19] MEDS: Vancomycin HCl 1 GM in Sodium Chloride 0.9% 250 ML 250 ML IVPB SCH (16:21)
[2023-07-19] MEDS ORDERED: Ketorolac Tromethamine 60 MG/2 ML VIAL IM SCH (17:45)
[2023-07-19] MEDS: Acetaminophen/Codeine 30-300mg Tablet PO PRN (22:48)
[2023-07-19] MEDS: Atorvastatin Calcium 40 MG TAB PO SCH (22:48)
[2023-07-19] MEDS: Tamsulosin HCl 0.4 MG CAP PO SCH (22:48)
[2023-07-20] MEDS ORDERED: Metoprolol Tartrate 25 MG TAB PO SCH ×3 (00:45→21:30)
[2023-07-20] MEDS ORDERED: Furosemide 40 MG/4 ML VIAL SLOW IVP SCH ×3 (02:30→12:00)
[2023-07-20] MEDS: Vancomycin HCl 750 MG in Sodium Chloride 0.9% 250 ML 250 ML IVPB SCH ×2 (05:00→18:14)
[2023-07-20 05:12] LABS: #Monocytes 1.2 10x3/uL (0.0-1.1); #Neutrophils 10.9 10x3/uL (1.5-8.4); %Basophils 0.2 % (0.0-2.0); %Eosinophils 0.1 % (0.0-6.0); %Lymphocytes 2.2 % (18.0-47.0); %Monocytes 9.2 % (0.0-10.0); %Neutrophils 87.2 % (40.0-75.0); Hematocrit 27.4 % (38.8-50.0); Mean Corpuscular HGB CONC 32.8 g/dL (32.0-36.0); Mean Corpuscular Hemoglobin 30.5 pg (27.0-33.0); Mean Corpuscular Volume 92.9 fl (81.2-95.1); Mean Platelet Volume 8.9 fl (7.4-10.4); Platelet Count 291 10x3/uL (150-450); RBC Distribution Width 15.2 % (11.5-14.5); Red Blood Cell (RBC) Count 2.95 10x6/uL (4.32-5.72); White Blood Cell (WBC) Count 12.6 10x3/uL (3.5-10.5)
[2023-07-20 05:34] LABS: ALT (SGPT) 28 U/L (8-55); AST (SGOT) 34 U/L (5-34); Albumin 2.4 g/dL (3.4-4.8); Alkaline Phosphatase 87 U/L (40-110); Anion Gap 16 mmol/L (10-20); BUN (Urea Nitrogen) 14 mg/dL (8.4-25.7); Bilirubin, Total 1.4 mg/dL (0.2-1.2); Calc. Creatinine Clearance 111 mL/min (70-130); Calcium 7.9 mg/dL (7.8-10.44); Carbon Dioxide 22 mmol/L (23-31); Chloride 105 mmol/L (98-107); Estimated GFR 92; Globulin 2.7 g/dL (2.4-3.5); Glucose 124 mg/dL (83-110); Potassium 3.2 mmol/L (3.5-5.1); Protein, Total 5.1 g/dL (5.8-8.1); Sodium 140 mmol/L (136-145)
[2023-07-20] MEDS ORDERED: Potassium Chloride 20 MEQ TAB PO SCH ×3 (06:00→22:15)
[2023-07-20] MEDS: Acetaminophen/Codeine 30-300mg Tablet PO PRN ×2 (06:13→22:40)
[2023-07-20] MEDS: guaiFENesin ER 600 MG TAB PO SCH ×2 (08:22→22:37)
[2023-07-20] MEDS: Aspirin 81 mg Enteric Coated Tablet PO SCH (08:22)
[2023-07-20] MEDS: Amiodarone 200 MG TAB PO SCH (08:22)
[2023-07-20] MEDS: Senokot S 8.6-50 MG TAB PO SCH ×2 (08:22→22:37)
[2023-07-20] MEDS: Polyethylene Glycol 3350 17 GM Packet PO SCH (08:22)
[2023-07-20] MEDS: Clopidogrel Bisulfate 75 MG TAB PO SCH (08:22)
[2023-07-20] MEDS: Trihexyphenidyl 2 MG TAB PO SCH ×3 (08:23→22:41)
[2023-07-20 12:57] LABS: Magnesium 1.7 mg/dL (1.6-2.6)
[2023-07-20 13:07] LABS: Troponin I 0.289 ng/mL (< 0.028)
[2023-07-20] MEDS ORDERED: Magnesium 2 GM/50 ML(in water) 2 GM in Premix Bag 1 BAG IVPB SCH ×2 (14:00→22:15)
[2023-07-20 21:26] LABS: Anion Gap 17 mmol/L (10-20); BUN (Urea Nitrogen) 13 mg/dL (8.4-25.7); Calc. Creatinine Clearance 100 mL/min (70-130); Calcium 7.9 mg/dL (7.8-10.44); Carbon Dioxide 26 mmol/L (23-31); Chloride 102 mmol/L (98-107); Estimated GFR 89; Glucose 129 mg/dL (83-110); Potassium 3.4 mmol/L (3.5-5.1); Sodium 142 mmol/L (136-145)
[2023-07-20] MEDS: Atorvastatin Calcium 40 MG TAB PO SCH (22:35)
[2023-07-20] MEDS: Tamsulosin HCl 0.4 MG CAP PO SCH (22:36)
[2023-07-21 05:38] LABS: #Monocytes 1.1 10x3/uL (0.0-1.1); #Neutrophils 10.6 10x3/uL (1.5-8.4); %Basophils 0.1 % (0.0-2.0); %Eosinophils 0.2 % (0.0-6.0); %Monocytes 8.8 % (0.0-10.0); Hematocrit 27.1 % (38.8-50.0); Hemoglobin 9.2 g/dL (13.5-17.5); Mean Corpuscular HGB CONC 33.9 g/dL (32.0-36.0); Mean Corpuscular Hemoglobin 30.9 pg (27.0-33.0); Mean Corpuscular Volume 90.9 fl (81.2-95.1); Mean Platelet Volume 8.8 fl (7.4-10.4); Platelet Count 355 10x3/uL (150-450); RBC Distribution Width 15.2 % (11.5-14.5); Red Blood Cell (RBC) Count 2.98 10x6/uL (4.32-5.72); White Blood Cell (WBC) Count 12.2 10x3/uL (3.5-10.5)
[2023-07-21 05:44] LABS: ALT (SGPT) 23 U/L (8-55); AST (SGOT) 31 U/L (5-34); Albumin 2.3 g/dL (3.4-4.8); Alkaline Phosphatase 87 U/L (40-110); Anion Gap 15 mmol/L (10-20); BUN (Urea Nitrogen) 14 mg/dL (8.4-25.7); Bilirubin, Total 1.2 mg/dL (0.2-1.2); Calc. Creatinine Clearance 100 mL/min (70-130); Calcium 7.8 mg/dL (7.8-10.44); Carbon Dioxide 25 mmol/L (23-31); Chloride 105 mmol/L (98-107); Estimated GFR 89; Globulin 2.9 g/dL (2.4-3.5); Glucose 112 mg/dL (83-110); Magnesium 2.6 mg/dL (1.6-2.6); Potassium 4.4 mmol/L (3.5-5.1); Protein, Total 5.2 g/dL (5.8-8.1); Sodium 141 mmol/L (136-145); Vancomycin, Trough 13.8 ug/mL
[2023-07-21] MEDS: Vancomycin HCl 750 MG in Sodium Chloride 0.9% 250 ML 250 ML IVPB SCH ×2 (06:43→18:37)
[2023-07-21] MEDS: guaiFENesin ER 600 MG TAB PO SCH ×2 (08:35→21:07)
[2023-07-21] MEDS: Aspirin 81 mg Enteric Coated Tablet PO SCH (08:35)
[2023-07-21] MEDS: Clopidogrel Bisulfate 75 MG TAB PO SCH (08:35)
[2023-07-21] MEDS: Amiodarone 200 MG TAB PO SCH (08:35)
[2023-07-21] MEDS: Furosemide 40 MG TAB PO SCH (08:35)
[2023-07-21] MEDS: Polyethylene Glycol 3350 17 GM Packet PO SCH (08:36)
[2023-07-21] MEDS: Senokot S 8.6-50 MG TAB PO SCH ×2 (08:36→20:31)
[2023-07-21] MEDS: Trihexyphenidyl 2 MG TAB PO SCH ×3 (09:00→21:07)
[2023-07-21] MEDS ORDERED: Furosemide 40 MG/4 ML VIAL SLOW IVP SCH (15:30)
[2023-07-21] MEDS: cefTRIAXone\\ROCEPHIN 2 GM in Sodium Chloride 0.9% 100 ML IVPB SCH (16:00)
[2023-07-21] MEDS: Atorvastatin Calcium 40 MG TAB PO SCH (21:06)
[2023-07-21] MEDS: Acetaminophen/Codeine 30-300mg Tablet PO PRN (21:06)
[2023-07-21] MEDS: Tamsulosin HCl 0.4 MG CAP PO SCH (21:06)
[2023-07-22 04:48] LABS: #Eosinphils 0.1 10x3/uL (0.0-0.5); #Monocytes 0.9 10x3/uL (0.0-1.1); #Neutrophils 9.9 10x3/uL (1.5-8.4); %Basophils 0.1 % (0.0-2.0); %Lymphocytes 3.5 % (18.0-47.0); %Monocytes 7.6 % (0.0-10.0); %Neutrophils 86.8 % (40.0-75.0); Hematocrit 24.3 % (38.8-50.0); Hemoglobin 7.9 g/dL (13.5-17.5); Mean Corpuscular HGB CONC 32.5 g/dL (32.0-36.0); Mean Corpuscular Volume 92.4 fl (81.2-95.1); Mean Platelet Volume 8.8 fl (7.4-10.4); Platelet Count 302 10x3/uL (150-450); RBC Distribution Width 15.2 % (11.5-14.5); Red Blood Cell (RBC) Count 2.63 10x6/uL (4.32-5.72); White Blood Cell (WBC) Count 11.5 10x3/uL (3.5-10.5)
[2023-07-22 05:04] LABS: ALT (SGPT) 20 U/L (8-55); AST (SGOT) 30 U/L (5-34); Albumin 2.3 g/dL (3.4-4.8); Alkaline Phosphatase 86 U/L (40-110); Anion Gap 15 mmol/L (10-20); BUN (Urea Nitrogen) 16 mg/dL (8.4-25.7); Calc. Creatinine Clearance 93 mL/min (70-130); Calcium 7.5 mg/dL (7.8-10.44); Carbon Dioxide 27 mmol/L (23-31); Chloride 102 mmol/L (98-107); Estimated GFR 87; Globulin 2.7 g/dL (2.4-3.5); Glucose 115 mg/dL (83-110); Potassium 3.5 mmol/L (3.5-5.1); Sodium 140 mmol/L (136-145)
[2023-07-22] MEDS: Vancomycin HCl 750 MG in Sodium Chloride 0.9% 250 ML 250 ML IVPB SCH ×2 (05:34→18:08)
[2023-07-22] MEDS: Ondansetron PF 4 MG/2 ML Vial IVP PRN ×2 (05:34→22:31)
[2023-07-22] MEDS ORDERED: Potassium Chloride 20 MEQ TAB PO SCH (10:00)
[2023-07-22] MEDS: Amiodarone 200 MG TAB PO SCH (10:22)
[2023-07-22] MEDS: guaiFENesin ER 600 MG TAB PO SCH ×2 (10:22→19:37)
[2023-07-22] MEDS: Clopidogrel Bisulfate 75 MG TAB PO SCH (10:22)
[2023-07-22] MEDS: Ondansetron ODT 4 MG TAB PO PRN ×2 (10:22→14:52)
[2023-07-22] MEDS: Acetaminophen 325 MG TAB PO PRN (10:22)
[2023-07-22] MEDS: Furosemide 40 MG TAB PO SCH (10:23)
[2023-07-22] MEDS: Aspirin 81 mg Enteric Coated Tablet PO SCH (10:23)
[2023-07-22] MEDS: Trihexyphenidyl 2 MG TAB PO SCH ×3 (10:25→19:37)
[2023-07-22] MEDS ORDERED: Furosemide 100 MG/10 ML VIAL SLOW IVP SCH (11:45)
[2023-07-22] MEDS: Senokot S 8.6-50 MG TAB PO SCH ×2 (13:57→19:37)
[2023-07-22] MEDS: Polyethylene Glycol 3350 17 GM Packet PO SCH (13:57)
[2023-07-22 14:38] LABS: SARS-CoV-2 NAA Rapid Test DETECTED (NotDetected)
[2023-07-22] MEDS ORDERED: Ventolin HFA Inhaler 60 PUFF INHALER INH PRN (15:44)
[2023-07-22] MEDS: cefTRIAXone\\ROCEPHIN 2 GM in Sodium Chloride 0.9% 100 ML IVPB SCH (16:05)
[2023-07-22] MEDS: Dexamethasone 4 mg/ml Vial SLOW IVP SCH (16:05)
[2023-07-22] MEDS ORDERED: REMDESIVIR 200 MG in Sodium Chloride 0.9% 250 ML 210 ML IV SCH ×3 (17:00→20:00)
[2023-07-22 17:32] LABS: Lactic Acid 1.1 mmol/L (0.5-2.2)
[2023-07-22 17:34] LABS: Vancomycin, Trough 20.7 ug/mL
[2023-07-22] MEDS ORDERED: Furosemide 40 MG/4 ML VIAL SLOW IVP SCH (18:30)
[2023-07-22] MEDS: Atorvastatin Calcium 40 MG TAB PO SCH (19:37)
[2023-07-22] MEDS: Tamsulosin HCl 0.4 MG CAP PO SCH (19:37)
[2023-07-23] MEDS: Furosemide 40 MG/4 ML VIAL SLOW IVP SCH ×2 (06:22→14:05)
[2023-07-23 06:50] LABS: #Monocytes 0.4 10x3/uL (0.0-1.1); #Neutrophils 9.4 10x3/uL (1.5-8.4); %Basophils 0.1 % (0.0-2.0); %Lymphocytes 1.4 % (18.0-47.0); %Monocytes 3.5 % (0.0-10.0); %Neutrophils 94.1 % (40.0-75.0); Hematocrit 25.1 % (38.8-50.0); Hemoglobin 8.2 g/dL (13.5-17.5); Mean Corpuscular HGB CONC 32.7 g/dL (32.0-36.0); Mean Corpuscular Volume 91.9 fl (81.2-95.1); Mean Platelet Volume 8.8 fl (7.4-10.4); Platelet Count 319 10x3/uL (150-450); Red Blood Cell (RBC) Count 2.73 10x6/uL (4.32-5.72)
[2023-07-23 06:55] LABS: ALT (SGPT) 21 U/L (8-55); AST (SGOT) 35 U/L (5-34); Albumin 2.2 g/dL (3.4-4.8); Alkaline Phosphatase 93 U/L (40-110); Anion Gap 20 mmol/L (10-20); BUN (Urea Nitrogen) 21 mg/dL (8.4-25.7); Bilirubin, Total 0.9 mg/dL (0.2-1.2); Calc. Creatinine Clearance 73 mL/min (70-130); Calcium 7.9 mg/dL (7.8-10.44); Carbon Dioxide 26 mmol/L (23-31); Chloride 101 mmol/L (98-107); Estimated GFR 67; Globulin 3.1 g/dL (2.4-3.5); Glucose 115 mg/dL (83-110); Potassium 3.5 mmol/L (3.5-5.1); Protein, Total 5.3 g/dL (5.8-8.1); Sodium 143 mmol/L (136-145)
[2023-07-23] MEDS ORDERED: Potassium Chloride 20 MEQ TAB PO SCH (08:00)
[2023-07-23] MEDS: Amiodarone 200 MG TAB PO SCH (09:23)
[2023-07-23] MEDS: guaiFENesin ER 600 MG TAB PO SCH ×2 (09:23→21:07)
[2023-07-23] MEDS: Clopidogrel Bisulfate 75 MG TAB PO SCH (09:23)
[2023-07-23] MEDS: Polyethylene Glycol 3350 17 GM Packet PO SCH (09:24)
[2023-07-23] MEDS: Senokot S 8.6-50 MG TAB PO SCH ×2 (09:25→20:49)
[2023-07-23] MEDS: Trihexyphenidyl 2 MG TAB PO SCH ×3 (09:28→21:06)
[2023-07-23] MEDS: Dexamethasone 4 mg/ml Vial SLOW IVP SCH (16:09)
[2023-07-23] MEDS: cefTRIAXone\\ROCEPHIN 2 GM in Sodium Chloride 0.9% 100 ML IVPB SCH (16:32)
[2023-07-23] MEDS: REMDESIVIR 100 MG in Sodium Chloride 0.9% 250 ML 230 ML IV SCH (16:33)
[2023-07-23] MEDS: Ondansetron PF 4 MG/2 ML Vial IVP PRN (17:08)
[2023-07-23] MEDS: VANCOMYCIN 1.25 GM/250 ML BAG 1.25 GM in Premix Bag 1 BAG IVPB SCH (17:09)
[2023-07-23] MEDS: Tamsulosin HCl 0.4 MG CAP PO SCH (21:07)
[2023-07-23] MEDS: Atorvastatin Calcium 40 MG TAB PO SCH (21:07)
[2023-07-23] MEDS: Acetaminophen 325 MG TAB PO PRN (21:35)
[2023-07-24] MEDS: Furosemide 40 MG/4 ML VIAL SLOW IVP SCH ×2 (06:31→13:11)
[2023-07-24 07:12] LABS: #Monocytes 0.4 10x3/uL (0.0-1.1); %Basophils 0.1 % (0.0-2.0); %Lymphocytes 2.1 % (18.0-47.0); %Monocytes 4.1 % (0.0-10.0); %Neutrophils 92.7 % (40.0-75.0); ALT (SGPT) 22 U/L (8-55); AST (SGOT) 38 U/L (5-34); Albumin 2.1 g/dL (3.4-4.8); Alkaline Phosphatase 92 U/L (40-110); Anion Gap 15 mmol/L (10-20); BUN (Urea Nitrogen) 26 mg/dL (8.4-25.7); Bilirubin, Total 0.8 mg/dL (0.2-1.2); Calc. Creatinine Clearance 73 mL/min (70-130); Calcium 7.7 mg/dL (7.8-10.44); Carbon Dioxide 28 mmol/L (23-31); Chloride 99 mmol/L (98-107); Estimated GFR 67; Globulin 2.9 g/dL (2.4-3.5); Glucose 126 mg/dL (83-110); Hematocrit 24.2 % (38.8-50.0); Mean Corpuscular HGB CONC 33.1 g/dL (32.0-36.0); Mean Corpuscular Volume 90.6 fl (81.2-95.1); Platelet Count 289 10x3/uL (150-450); Potassium 3.2 mmol/L (3.5-5.1); RBC Distribution Width 14.9 % (11.5-14.5); Red Blood Cell (RBC) Count 2.67 10x6/uL (4.32-5.72); Sodium 139 mmol/L (136-145); White Blood Cell (WBC) Count 10.8 10x3/uL (3.5-10.5)
[2023-07-24] MEDS: Polyethylene Glycol 3350 17 GM Packet PO SCH (08:09)
[2023-07-24] MEDS: Senokot S 8.6-50 MG TAB PO SCH ×2 (08:11→20:16)
[2023-07-24] MEDS: Cholecalciferol (Vitamin D3) 400 UNITS TAB PO SCH (08:46)
[2023-07-24] MEDS: Ascorbic Acid 500 mg Chewable Tablet PO SCH (08:46)
[2023-07-24] MEDS: Zinc Sulfate 220 MG CAP PO SCH (08:47)
[2023-07-24] MEDS: guaiFENesin ER 600 MG TAB PO SCH ×2 (08:47→20:22)
[2023-07-24] MEDS: Trihexyphenidyl 2 MG TAB PO SCH ×3 (08:47→20:22)
[2023-07-24] MEDS: Amiodarone 200 MG TAB PO SCH (08:47)
[2023-07-24] MEDS: Clopidogrel Bisulfate 75 MG TAB PO SCH (08:47)
[2023-07-24] MEDS: Potassium Chloride 20 MEQ in Premix Bag 1 BAG IVPB SCH ×2 (08:48→10:44)
[2023-07-24] MEDS ORDERED: Spironolactone 25 MG TAB PO SCH (12:00)
[2023-07-24] MEDS: Dexamethasone 4 mg/ml Vial SLOW IVP SCH (15:26)
[2023-07-24] MEDS: cefTRIAXone\\ROCEPHIN 2 GM in Sodium Chloride 0.9% 100 ML IVPB SCH (15:26)
[2023-07-24 16:31] LABS: Potassium 3.3 mmol/L (3.5-5.1)
[2023-07-24] MEDS: VANCOMYCIN 1.25 GM/250 ML BAG 1.25 GM in Premix Bag 1 BAG IVPB SCH (16:55)
[2023-07-24] MEDS: REMDESIVIR 100 MG in Sodium Chloride 0.9% 250 ML 230 ML IV SCH (16:55)
[2023-07-24] MEDS: Atorvastatin Calcium 40 MG TAB PO SCH (20:22)
[2023-07-24] MEDS: Tamsulosin HCl 0.4 MG CAP PO SCH (20:22)
[2023-07-25 03:42] LABS: #Monocytes 0.6 10x3/uL (0.0-1.1); #Neutrophils 9.7 10x3/uL (1.5-8.4); %Basophils 0.2 % (0.0-2.0); %Eosinophils 0.1 % (0.0-6.0); %Lymphocytes 1.7 % (18.0-47.0); %Monocytes 5.2 % (0.0-10.0); %Neutrophils 91.3 % (40.0-75.0); Hematocrit 24.2 % (38.8-50.0); Hemoglobin 7.9 g/dL (13.5-17.5); Mean Corpuscular HGB CONC 32.6 g/dL (32.0-36.0); Mean Corpuscular Hemoglobin 29.6 pg (27.0-33.0); Mean Corpuscular Volume 90.6 fl (81.2-95.1); Platelet Count 264 10x3/uL (150-450); Red Blood Cell (RBC) Count 2.67 10x6/uL (4.32-5.72); White Blood Cell (WBC) Count 10.7 10x3/uL (3.5-10.5)
[2023-07-25 03:43] LABS: Magnesium 1.7 mg/dL (1.6-2.6); Phosphorus 3.3 mg/dL (2.3-4.7)
[2023-07-25 03:44] LABS: ALT (SGPT) 26 U/L (8-55); AST (SGOT) 58 U/L (5-34); Alkaline Phosphatase 93 U/L (40-110); Anion Gap 14 mmol/L (10-20); BUN (Urea Nitrogen) 26 mg/dL (8.4-25.7); Bilirubin, Total 0.7 mg/dL (0.2-1.2); Calc. Creatinine Clearance 78 mL/min (70-130); Calcium 7.4 mg/dL (7.8-10.44); Carbon Dioxide 29 mmol/L (23-31); Chloride 96 mmol/L (98-107); Estimated GFR 73; Globulin 2.8 g/dL (2.4-3.5); Glucose 134 mg/dL (83-110); Potassium 3.3 mmol/L (3.5-5.1); Protein, Total 4.8 g/dL (5.8-8.1); Sodium 136 mmol/L (136-145)
[2023-07-25 03:56] LABS: Vancomycin, Trough 27.1 ug/mL
[2023-07-25] MEDS ORDERED: Potassium Chloride 20 MEQ in Premix Bag 1 BAG IVPB SCH (04:15)
[2023-07-25] MEDS ORDERED: Potassium Chloride 40 MEQ in Premix Bag 1 BAG IVPB SCH (05:00)
[2023-07-25] MEDS ORDERED: Magnesium 2 GM/50 ML(in water) 2 GM in Premix Bag 1 BAG IVPB SCH (05:00)
[2023-07-25 05:16] LABS: Potassium 3.3 mmol/L (3.5-5.1)
[2023-07-25] MEDS: Furosemide 40 MG/4 ML VIAL SLOW IVP SCH ×2 (05:35→14:05)
[2023-07-25] MEDS: Ondansetron PF 4 MG/2 ML Vial IVP PRN ×2 (06:30→12:08)
[2023-07-25] MEDS: Trihexyphenidyl 2 MG TAB PO SCH ×3 (08:40→20:13)
[2023-07-25] MEDS: Amiodarone 200 MG TAB PO SCH (08:41)
[2023-07-25] MEDS: Spironolactone 25 MG TAB PO SCH (08:41)
[2023-07-25] MEDS: Cholecalciferol (Vitamin D3) 400 UNITS TAB PO SCH (08:41)
[2023-07-25] MEDS: Ascorbic Acid 500 mg Chewable Tablet PO SCH (08:43)
[2023-07-25] MEDS: Clopidogrel Bisulfate 75 MG TAB PO SCH (08:43)
[2023-07-25] MEDS: Polyethylene Glycol 3350 17 GM Packet PO SCH (08:44)
[2023-07-25] MEDS: Senokot S 8.6-50 MG TAB PO SCH ×2 (08:44→20:13)
[2023-07-25] MEDS: guaiFENesin ER 600 MG TAB PO SCH ×2 (08:44→20:13)
[2023-07-25] MEDS: Zinc Sulfate 220 MG CAP PO SCH (08:45)
[2023-07-25 10:26] LABS: Potassium 7.9 mmol/L (3.5-5.1)
[2023-07-25] MEDS: Dexamethasone 4 mg/ml Vial SLOW IVP SCH (15:02)
[2023-07-25] MEDS: REMDESIVIR 100 MG in Sodium Chloride 0.9% 250 ML 230 ML IV SCH (16:25)
[2023-07-25] MEDS: Dicyclomine 10 MG CAP PO PRN (17:09)
[2023-07-25 17:52] LABS: Vancomycin, Trough 16.7 ug/mL
[2023-07-25] MEDS: VANCOMYCIN 1.25 GM/250 ML BAG 1.25 GM in Premix Bag 1 BAG IVPB SCH (18:03)
[2023-07-25] MEDS: Atorvastatin Calcium 40 MG TAB PO SCH (20:13)
[2023-07-25] MEDS: Tamsulosin HCl 0.4 MG CAP PO SCH (20:13)
[2023-07-26 04:29] LABS: #Monocytes 0.5 10x3/uL (0.0-1.1); #Neutrophils 8.7 10x3/uL (1.5-8.4); %Lymphocytes 1.5 % (18.0-47.0); %Monocytes 4.9 % (0.0-10.0); %Neutrophils 91.8 % (40.0-75.0); Hematocrit 26.6 % (38.8-50.0); Hemoglobin 8.6 g/dL (13.5-17.5); Mean Corpuscular HGB CONC 32.3 g/dL (32.0-36.0); Mean Corpuscular Hemoglobin 29.3 pg (27.0-33.0); Mean Corpuscular Volume 90.5 fl (81.2-95.1); Mean Platelet Volume 9.4 fl (7.4-10.4); Platelet Count 253 10x3/uL (150-450); RBC Distribution Width 14.7 % (11.5-14.5); Red Blood Cell (RBC) Count 2.94 10x6/uL (4.32-5.72); White Blood Cell (WBC) Count 9.5 10x3/uL (3.5-10.5)
[2023-07-26 04:39] LABS: ALT (SGPT) 27 U/L (8-55); AST (SGOT) 49 U/L (5-34); Albumin 2.2 g/dL (3.4-4.8); Alkaline Phosphatase 106 U/L (40-110); Anion Gap 16 mmol/L (10-20); BUN (Urea Nitrogen) 31 mg/dL (8.4-25.7); Bilirubin, Total 0.6 mg/dL (0.2-1.2); Calc. Creatinine Clearance 62 mL/min (70-130); Calcium 7.5 mg/dL (7.8-10.44); Carbon Dioxide 28 mmol/L (23-31); Chloride 95 mmol/L (98-107); Estimated GFR 56; Globulin 2.7 g/dL (2.4-3.5); Glucose 155 mg/dL (83-110); Potassium 3.3 mmol/L (3.5-5.1); Protein, Total 4.9 g/dL (5.8-8.1); Sodium 136 mmol/L (136-145)
[2023-07-26] MEDS: Furosemide 40 MG/4 ML VIAL SLOW IVP SCH (05:20)
[2023-07-26] MEDS ORDERED: Potassium Chloride 20 MEQ TAB PO SCH (06:00)
[2023-07-26] MEDS ORDERED: Magnesium 2 GM/50 ML(in water) 2 GM in Premix Bag 1 BAG IVPB SCH (06:00)
[2023-07-26] MEDS: Zinc Sulfate 220 MG CAP PO SCH (08:34)
[2023-07-26] MEDS: guaiFENesin ER 600 MG TAB PO SCH ×2 (08:34→20:11)
[2023-07-26] MEDS: Amiodarone 200 MG TAB PO SCH (08:34)
[2023-07-26] MEDS: Spironolactone 25 MG TAB PO SCH (08:35)
[2023-07-26] MEDS: Trihexyphenidyl 2 MG TAB PO SCH ×3 (08:35→20:11)
[2023-07-26] MEDS: Clopidogrel Bisulfate 75 MG TAB PO SCH (08:35)
[2023-07-26] MEDS: Polyethylene Glycol 3350 17 GM Packet PO SCH (08:35)
[2023-07-26] MEDS: Cholecalciferol (Vitamin D3) 400 UNITS TAB PO SCH (08:35)
[2023-07-26] MEDS: Senokot S 8.6-50 MG TAB PO SCH ×2 (08:35→20:11)
[2023-07-26] MEDS: Ascorbic Acid 500 mg Chewable Tablet PO SCH (08:35)
[2023-07-26] MEDS: Heparin 5,000 UNITS/ML VIAL SC SCH ×2 (15:25→20:08)
[2023-07-26] MEDS: Dexamethasone 4 mg/ml Vial SLOW IVP SCH (15:25)
[2023-07-26] MEDS: VANCOMYCIN 1.25 GM/250 ML BAG 1.25 GM in Premix Bag 1 BAG IVPB SCH (17:06)
[2023-07-26] MEDS: REMDESIVIR 100 MG in Sodium Chloride 0.9% 250 ML 230 ML IV SCH (17:06)
[2023-07-26] MEDS: Tamsulosin HCl 0.4 MG CAP PO SCH (20:11)
[2023-07-26] MEDS: Atorvastatin Calcium 40 MG TAB PO SCH (20:11)
[2023-07-27 04:19] LABS: Hemoglobin 8.1 g/dL (13.5-17.5); Mean Corpuscular HGB CONC 33.8 g/dL (32.0-36.0); Mean Corpuscular Volume 88.9 fl (81.2-95.1); Mean Platelet Volume 9.5 fl (7.4-10.4); Platelet Count 253 10x3/uL (150-450); RBC Distribution Width 14.7 % (11.5-14.5); White Blood Cell (WBC) Count 12.7 10x3/uL (3.5-10.5)
[2023-07-27 04:25] LABS: MDiff Complete? YES
[2023-07-27 04:26] LABS: ALT (SGPT) 28 U/L (8-55); AST (SGOT) 41 U/L (5-34); Albumin 2.1 g/dL (3.4-4.8); Alkaline Phosphatase 101 U/L (40-110); Anion Gap 13 mmol/L (10-20); BUN (Urea Nitrogen) 39 mg/dL (8.4-25.7); Bilirubin, Total 0.5 mg/dL (0.2-1.2); Calc. Creatinine Clearance 74 mL/min (70-130); Calcium 7.1 mg/dL (7.8-10.44); Carbon Dioxide 28 mmol/L (23-31); Chloride 95 mmol/L (98-107); Estimated GFR 69; Globulin 2.6 g/dL (2.4-3.5); Glucose 144 mg/dL (83-110); Magnesium 2.4 mg/dL (1.6-2.6); Potassium 3.5 mmol/L (3.5-5.1); Protein, Total 4.7 g/dL (5.8-8.1); Sodium 132 mmol/L (136-145)
[2023-07-27 06:32] LABS: Band 4 % (5-11); Lymphocytes 1 % (21-51); Monocytes 4 % (0-10); Neutrophil 91 % (42-75)
[2023-07-27] MEDS: Heparin 5,000 UNITS/ML VIAL SC SCH ×3 (07:41→20:44)
[2023-07-27] MEDS ORDERED: Potassium Chloride 20 MEQ TAB PO SCH (08:00)
[2023-07-27] MEDS: Amiodarone 200 MG TAB PO SCH (08:02)
[2023-07-27] MEDS: guaiFENesin ER 600 MG TAB PO SCH ×2 (08:02→20:44)
[2023-07-27] MEDS: Cholecalciferol (Vitamin D3) 400 UNITS TAB PO SCH (08:02)
[2023-07-27] MEDS: Clopidogrel Bisulfate 75 MG TAB PO SCH (08:03)
[2023-07-27] MEDS: Ascorbic Acid 500 mg Chewable Tablet PO SCH (08:03)
[2023-07-27] MEDS: Spironolactone 25 MG TAB PO SCH (08:03)
[2023-07-27] MEDS: Polyethylene Glycol 3350 17 GM Packet PO SCH ×2 (08:03→20:43)
[2023-07-27] MEDS: Senokot S 8.6-50 MG TAB PO SCH ×2 (08:04→20:44)
[2023-07-27] MEDS: Zinc Sulfate 220 MG CAP PO SCH (08:06)
[2023-07-27] MEDS: Trihexyphenidyl 2 MG TAB PO SCH ×3 (08:06→20:43)
[2023-07-27] MEDS: Furosemide 40 MG/4 ML VIAL SLOW IVP SCH (09:14)
[2023-07-27] MEDS: Dexamethasone 4 mg/ml Vial SLOW IVP SCH (15:06)
[2023-07-27] MEDS: VANCOMYCIN 1.25 GM/250 ML BAG 1.25 GM in Premix Bag 1 BAG IVPB SCH (17:01)
[2023-07-27] MEDS: Atorvastatin Calcium 40 MG TAB PO SCH (20:44)
[2023-07-27] MEDS: Tamsulosin HCl 0.4 MG CAP PO SCH (20:44)
[2023-07-27] MEDS: Acetaminophen/Codeine 30-300mg Tablet PO PRN (23:07)
[2023-07-27] MEDS: Benzonatate 100 MG CAP PO PRN (23:08)
[2023-07-28] MEDS ORDERED: Morphine 2 MG/ML VIAL SLOW IVP SCH (04:30)
[2023-07-28 04:31] LABS: #Monocytes 0.5 10x3/uL (0.0-1.1); #Neutrophils 11.7 10x3/uL (1.5-8.4); %Basophils 0.1 % (0.0-2.0); %Lymphocytes 1.9 % (18.0-47.0); %Monocytes 3.6 % (0.0-10.0); %Neutrophils 92.4 % (40.0-75.0); Hematocrit 25.9 % (38.8-50.0); Hemoglobin 8.3 g/dL (13.5-17.5); Mean Corpuscular Hemoglobin 28.9 pg (27.0-33.0); Mean Corpuscular Volume 90.2 fl (81.2-95.1); Mean Platelet Volume 9.6 fl (7.4-10.4); Platelet Count 286 10x3/uL (150-450); RBC Distribution Width 14.9 % (11.5-14.5); Red Blood Cell (RBC) Count 2.87 10x6/uL (4.32-5.72); White Blood Cell (WBC) Count 12.6 10x3/uL (3.5-10.5)
[2023-07-28 04:51] LABS: ALT (SGPT) 30 U/L (8-55); AST (SGOT) 39 U/L (5-34); Albumin 2.1 g/dL (3.4-4.8); Alkaline Phosphatase 93 U/L (40-110); Anion Gap 14 mmol/L (10-20); BUN (Urea Nitrogen) 43 mg/dL (8.4-25.7); Bilirubin, Total 0.6 mg/dL (0.2-1.2); Calc. Creatinine Clearance 81 mL/min (70-130); Calcium 7.3 mg/dL (7.8-10.44); Carbon Dioxide 27 mmol/L (23-31); Chloride 96 mmol/L (98-107); Estimated GFR 77; Globulin 2.6 g/dL (2.4-3.5); Glucose 132 mg/dL (83-110); Potassium 4.6 mmol/L (3.5-5.1); Protein, Total 4.7 g/dL (5.8-8.1); Sodium 132 mmol/L (136-145)
[2023-07-28] MEDS: Furosemide 40 MG/4 ML VIAL SLOW IVP SCH (08:27)
[2023-07-28] MEDS: Polyethylene Glycol 3350 17 GM Packet PO SCH (08:28)
[2023-07-28] MEDS: Trihexyphenidyl 2 MG TAB PO SCH ×3 (08:28→20:50)
[2023-07-28] MEDS: Heparin 5,000 UNITS/ML VIAL SC SCH ×3 (08:28→20:50)
[2023-07-28] MEDS: Spironolactone 25 MG TAB PO SCH (08:28)
[2023-07-28] MEDS: guaiFENesin ER 600 MG TAB PO SCH ×2 (08:28→20:50)
[2023-07-28] MEDS: Amiodarone 200 MG TAB PO SCH (08:28)
[2023-07-28] MEDS: Clopidogrel Bisulfate 75 MG TAB PO SCH (08:28)
[2023-07-28] MEDS: Zinc Sulfate 220 MG CAP PO SCH (08:29)
[2023-07-28] MEDS: Cholecalciferol (Vitamin D3) 400 UNITS TAB PO SCH (08:29)
[2023-07-28] MEDS: Senokot S 8.6-50 MG TAB PO SCH ×2 (08:29→20:50)
[2023-07-28] MEDS: Ascorbic Acid 500 mg Chewable Tablet PO SCH (08:29)
[2023-07-28] MEDS: Ondansetron PF 4 MG/2 ML Vial IVP PRN (15:37)
[2023-07-28] MEDS ORDERED: Dexamethasone 4 mg/ml Vial SLOW IVP SCH (16:00)
[2023-07-28] MEDS: Dicyclomine 10 MG CAP PO PRN (16:16)
[2023-07-28] MEDS: VANCOMYCIN 1.25 GM/250 ML BAG 1.25 GM in Premix Bag 1 BAG IVPB SCH (17:40)
[2023-07-28] MEDS: Atorvastatin Calcium 40 MG TAB PO SCH (20:50)
[2023-07-28] MEDS: Tamsulosin HCl 0.4 MG CAP PO SCH (20:50)
[2023-07-28] MEDS ORDERED: Bisacodyl 10 MG SUPP PR SCH (22:45)
[2023-07-29 04:52] LABS: #Neutrophils 12.9 10x3/uL (1.5-8.4); %Basophils 0.1 % (0.0-2.0); %Eosinophils 0.1 % (0.0-6.0); %Lymphocytes 2.2 % (18.0-47.0); %Monocytes 6.8 % (0.0-10.0); %Neutrophils 87.4 % (40.0-75.0); Hematocrit 23.9 % (38.8-50.0); Hemoglobin 7.9 g/dL (13.5-17.5); Mean Corpuscular HGB CONC 33.1 g/dL (32.0-36.0); Mean Corpuscular Hemoglobin 30.2 pg (27.0-33.0); Mean Corpuscular Volume 91.2 fl (81.2-95.1); Mean Platelet Volume 9.6 fl (7.4-10.4); Platelet Count 279 10x3/uL (150-450); RBC Distribution Width 15.3 % (11.5-14.5); Red Blood Cell (RBC) Count 2.62 10x6/uL (4.32-5.72); White Blood Cell (WBC) Count 14.8 10x3/uL (3.5-10.5)
[2023-07-29 04:59] LABS: ALT (SGPT) 33 U/L (8-55); AST (SGOT) 38 U/L (5-34); Albumin 2.1 g/dL (3.4-4.8); Alkaline Phosphatase 94 U/L (40-110); Anion Gap 13 mmol/L (10-20); BUN (Urea Nitrogen) 50 mg/dL (8.4-25.7); Bilirubin, Total 0.6 mg/dL (0.2-1.2); Calc. Creatinine Clearance 69 mL/min (70-130); Calcium 7.2 mg/dL (7.8-10.44); Carbon Dioxide 27 mmol/L (23-31); Chloride 95 mmol/L (98-107); Estimated GFR 63; Globulin 2.4 g/dL (2.4-3.5); Glucose 112 mg/dL (83-110); Protein, Total 4.5 g/dL (5.8-8.1); Sodium 130 mmol/L (136-145)
[2023-07-29] MEDS: Acetaminophen 325 MG TAB PO PRN (07:25)
[2023-07-29] MEDS: Zinc Sulfate 220 MG CAP PO SCH (08:17)
[2023-07-29] MEDS: Polyethylene Glycol 3350 17 GM Packet PO SCH (08:18)
[2023-07-29] MEDS: Furosemide 40 MG/4 ML VIAL SLOW IVP SCH (08:18)
[2023-07-29] MEDS: Senokot S 8.6-50 MG TAB PO SCH ×2 (08:18→20:22)
[2023-07-29] MEDS: Amiodarone 200 MG TAB PO SCH (08:18)
[2023-07-29] MEDS: Heparin 5,000 UNITS/ML VIAL SC SCH ×3 (08:18→20:22)
[2023-07-29] MEDS: Acetaminophen/Codeine 30-300mg Tablet PO PRN (08:19)
[2023-07-29] MEDS: guaiFENesin ER 600 MG TAB PO SCH ×2 (08:19→20:22)
[2023-07-29] MEDS: Cholecalciferol (Vitamin D3) 400 UNITS TAB PO SCH (08:19)
[2023-07-29] MEDS: Ascorbic Acid 500 mg Chewable Tablet PO SCH (08:19)
[2023-07-29] MEDS: Clopidogrel Bisulfate 75 MG TAB PO SCH (08:19)
[2023-07-29] MEDS: Trihexyphenidyl 2 MG TAB PO SCH ×3 (08:23→20:20)
[2023-07-29] MEDS: oxyCODONE 5 MG TAB PO PRN ×2 (09:26→20:21)
[2023-07-29] MEDS ORDERED: predniSONE 20 MG TAB PO SCH (12:00)
[2023-07-29] MEDS: VANCOMYCIN 1.25 GM/250 ML BAG 1.25 GM in Premix Bag 1 BAG IVPB SCH (17:04)
[2023-07-29 17:28] LABS: Vancomycin, Trough 22.8 ug/mL
[2023-07-29] MEDS: Tamsulosin HCl 0.4 MG CAP PO SCH (20:21)
[2023-07-29] MEDS: Atorvastatin Calcium 40 MG TAB PO SCH (20:22)
[2023-07-30 03:29] LABS: #Monocytes 0.6 10x3/uL (0.0-1.1); #Neutrophils 17.8 10x3/uL (1.5-8.4); %Basophils 0.1 % (0.0-2.0); %Eosinophils 0.1 % (0.0-6.0); %Lymphocytes 0.9 % (18.0-47.0); %Monocytes 3.1 % (0.0-10.0); Hematocrit 24.6 % (38.8-50.0); Hemoglobin 8.1 g/dL (13.5-17.5); Mean Corpuscular HGB CONC 32.9 g/dL (32.0-36.0); Mean Corpuscular Hemoglobin 30.3 pg (27.0-33.0); Mean Corpuscular Volume 92.1 fl (81.2-95.1); Mean Platelet Volume 9.8 fl (7.4-10.4); Platelet Count 301 10x3/uL (150-450); RBC Distribution Width 15.7 % (11.5-14.5); Red Blood Cell (RBC) Count 2.67 10x6/uL (4.32-5.72); White Blood Cell (WBC) Count 19.1 10x3/uL (3.5-10.5)
[2023-07-30 03:42] LABS: ALT (SGPT) 31 U/L (8-55); AST (SGOT) 37 U/L (5-34); Albumin 2.1 g/dL (3.4-4.8); Alkaline Phosphatase 109 U/L (40-110); Anion Gap 14 mmol/L (10-20); BUN (Urea Nitrogen) 54 mg/dL (8.4-25.7); Bilirubin, Total 0.6 mg/dL (0.2-1.2); Calc. Creatinine Clearance 65 mL/min (70-130); Calcium 7.5 mg/dL (7.8-10.44); Carbon Dioxide 26 mmol/L (23-31); Chloride 97 mmol/L (98-107); Estimated GFR 59; Globulin 2.6 g/dL (2.4-3.5); Glucose 120 mg/dL (83-110); Potassium 5.4 mmol/L (3.5-5.1); Protein, Total 4.7 g/dL (5.8-8.1); Sodium 132 mmol/L (136-145)
[2023-07-30] MEDS: HYDROcodone/Acetaminophen 5/325 mg Tablet PO PRN (04:05)
[2023-07-30] MEDS: Ascorbic Acid 500 mg Chewable Tablet PO SCH (08:00)
[2023-07-30] MEDS ORDERED: predniSONE 20 MG TAB PO SCH (08:00)
[2023-07-30] MEDS: Polyethylene Glycol 3350 17 GM Packet PO SCH (08:11)
[2023-07-30] MEDS: Zinc Sulfate 220 MG CAP PO SCH (08:11)
[2023-07-30] MEDS: Furosemide 40 MG/4 ML VIAL SLOW IVP SCH (08:11)
[2023-07-30] MEDS: Senokot S 8.6-50 MG TAB PO SCH ×2 (08:11→20:45)
[2023-07-30] MEDS: guaiFENesin ER 600 MG TAB PO SCH ×2 (08:17→20:45)
[2023-07-30] MEDS: Clopidogrel Bisulfate 75 MG TAB PO SCH (08:17)
[2023-07-30] MEDS: Amiodarone 200 MG TAB PO SCH (08:18)
[2023-07-30] MEDS: Trihexyphenidyl 2 MG TAB PO SCH ×3 (09:18→20:45)
[2023-07-30] MEDS: Heparin 5,000 UNITS/ML VIAL SC SCH ×3 (09:19→20:46)
[2023-07-30] MEDS: Cholecalciferol (Vitamin D3) 400 UNITS TAB PO SCH (10:35)
[2023-07-30] MEDS: Morphine 2 MG/ML VIAL SLOW IVP PRN ×2 (11:10→20:45)
[2023-07-30] MEDS: Tamsulosin HCl 0.4 MG CAP PO SCH (20:45)
[2023-07-30] MEDS: Atorvastatin Calcium 40 MG TAB PO SCH (20:45)
[2023-07-30] MEDS ORDERED: Vancomycin HCl 1 GM in Sodium Chloride 0.9% 250 ML 250 ML IVPB SCH (23:00)
[2023-07-31 05:13] LABS: #Eosinphils 0.2 10x3/uL (0.0-0.5); #Neutrophils 14.3 10x3/uL (1.5-8.4); %Basophils 0.1 % (0.0-2.0); %Eosinophils 0.9 % (0.0-6.0); %Lymphocytes 2.4 % (18.0-47.0); %Monocytes 5.9 % (0.0-10.0); %Neutrophils 87.4 % (40.0-75.0); Hematocrit 23.5 % (38.8-50.0); Hemoglobin 7.7 g/dL (13.5-17.5); Mean Corpuscular HGB CONC 32.8 g/dL (32.0-36.0); Mean Corpuscular Hemoglobin 30.2 pg (27.0-33.0); Mean Corpuscular Volume 92.2 fl (81.2-95.1); Mean Platelet Volume 9.5 fl (7.4-10.4); Platelet Count 326 10x3/uL (150-450); RBC Distribution Width 15.9 % (11.5-14.5); Red Blood Cell (RBC) Count 2.55 10x6/uL (4.32-5.72); White Blood Cell (WBC) Count 16.4 10x3/uL (3.5-10.5)
[2023-07-31] MEDS: Morphine 2 MG/ML VIAL SLOW IVP PRN ×2 (05:26→11:34)
[2023-07-31 06:10] LABS: Vancomycin, Trough 17.9 ug/mL
[2023-07-31 06:15] LABS: ALT (SGPT) 30 U/L (8-55); AST (SGOT) 33 U/L (5-34); Albumin 2.1 g/dL (3.4-4.8); Alkaline Phosphatase 100 U/L (40-110); Anion Gap 14 mmol/L (10-20); BUN (Urea Nitrogen) 55 mg/dL (8.4-25.7); Bilirubin, Total 0.6 mg/dL (0.2-1.2); Calc. Creatinine Clearance 69 mL/min (70-130); Calcium 7.7 mg/dL (7.8-10.44); Carbon Dioxide 27 mmol/L (23-31); Chloride 100 mmol/L (98-107); Estimated GFR 64; Globulin 2.7 g/dL (2.4-3.5); Glucose 101 mg/dL (83-110); Potassium 4.9 mmol/L (3.5-5.1); Protein, Total 4.8 g/dL (5.8-8.1); Sodium 136 mmol/L (136-145)
[2023-07-31] MEDS: Polyethylene Glycol 3350 17 GM Packet PO SCH (08:20)
[2023-07-31] MEDS: Heparin 5,000 UNITS/ML VIAL SC SCH ×3 (08:20→21:14)
[2023-07-31] MEDS: Ascorbic Acid 500 mg Chewable Tablet PO SCH (08:21)
[2023-07-31] MEDS: Zinc Sulfate 220 MG CAP PO SCH (08:21)
[2023-07-31] MEDS: Senokot S 8.6-50 MG TAB PO SCH ×2 (08:21→21:11)
[2023-07-31] MEDS: Clopidogrel Bisulfate 75 MG TAB PO SCH (08:24)
[2023-07-31] MEDS: guaiFENesin ER 600 MG TAB PO SCH ×2 (08:24→21:10)
[2023-07-31] MEDS: Amiodarone 200 MG TAB PO SCH (08:24)
[2023-07-31] MEDS: Furosemide 40 MG TAB PO SCH (08:24)
[2023-07-31] MEDS: Trihexyphenidyl 2 MG TAB PO SCH ×3 (08:28→21:11)
[2023-07-31] MEDS: predniSONE 5 MG TAB PO SCH (08:29)
[2023-07-31] MEDS: Cholecalciferol (Vitamin D3) 400 UNITS TAB PO SCH (08:29)
[2023-07-31] MEDS: Ventolin HFA Inhaler 60 PUFF INHALER INH PRN ×2 (19:50→23:54)
[2023-07-31] MEDS: Tamsulosin HCl 0.4 MG CAP PO SCH (21:10)
[2023-07-31] MEDS: Atorvastatin Calcium 40 MG TAB PO SCH (21:11)
[2023-08-01 03:42] LABS: #Eosinphils 0.2 10x3/uL (0.0-0.5); %Basophils 0.1 % (0.0-2.0); %Eosinophils 1.7 % (0.0-6.0); %Lymphocytes 2.4 % (18.0-47.0); %Monocytes 7.5 % (0.0-10.0); %Neutrophils 86.4 % (40.0-75.0); Hematocrit 24.4 % (38.8-50.0); Hemoglobin 7.8 g/dL (13.5-17.5); Mean Corpuscular Hemoglobin 29.4 pg (27.0-33.0); Mean Corpuscular Volume 92.1 fl (81.2-95.1); Mean Platelet Volume 9.4 fl (7.4-10.4); Platelet Count 305 10x3/uL (150-450); Red Blood Cell (RBC) Count 2.65 10x6/uL (4.32-5.72); White Blood Cell (WBC) Count 13.9 10x3/uL (3.5-10.5)
[2023-08-01 03:48] LABS: ALT (SGPT) 35 U/L (8-55); AST (SGOT) 37 U/L (5-34); Albumin 2.1 g/dL (3.4-4.8); Alkaline Phosphatase 87 U/L (40-110); Anion Gap 13 mmol/L (10-20); BUN (Urea Nitrogen) 39 mg/dL (8.4-25.7); Bilirubin, Total 0.8 mg/dL (0.2-1.2); Calc. Creatinine Clearance 91 mL/min (70-130); Calcium 7.7 mg/dL (7.8-10.44); Carbon Dioxide 28 mmol/L (23-31); Chloride 98 mmol/L (98-107); Estimated GFR 86; Globulin 2.6 g/dL (2.4-3.5); Glucose 96 mg/dL (83-110); Potassium 4.5 mmol/L (3.5-5.1); Protein, Total 4.7 g/dL (5.8-8.1); Sodium 134 mmol/L (136-145)
[2023-08-01] MEDS ORDERED: predniSONE 20 MG TAB PO SCH (08:00)
[2023-08-01] MEDS: Polyethylene Glycol 3350 17 GM Packet PO SCH (10:25)
[2023-08-01] MEDS: Clopidogrel Bisulfate 75 MG TAB PO SCH (10:25)
[2023-08-01] MEDS: Cholecalciferol (Vitamin D3) 400 UNITS TAB PO SCH (10:25)
[2023-08-01] MEDS: Ascorbic Acid 500 mg Chewable Tablet PO SCH (10:26)
[2023-08-01] MEDS: Amiodarone 200 MG TAB PO SCH (10:26)
[2023-08-01] MEDS: Furosemide 40 MG TAB PO SCH (10:26)
[2023-08-01] MEDS: guaiFENesin ER 600 MG TAB PO SCH ×2 (10:26→20:34)
[2023-08-01] MEDS: Trihexyphenidyl 2 MG TAB PO SCH ×3 (10:27→20:34)
[2023-08-01] MEDS: Senokot S 8.6-50 MG TAB PO SCH ×2 (10:27→20:34)
[2023-08-01] MEDS: Morphine 2 MG/ML VIAL SLOW IVP PRN (10:33)
[2023-08-01] MEDS: Zinc Sulfate 220 MG CAP PO SCH (10:34)
[2023-08-01] MEDS: predniSONE 5 MG TAB PO SCH (10:34)
[2023-08-01] MEDS: Heparin 5,000 UNITS/ML VIAL SC SCH ×3 (10:50→20:34)
[2023-08-01] MEDS ORDERED: Furosemide 20 MG/2 ML VIAL SLOW IVP SCH (14:00)
[2023-08-01] MEDS: Furosemide 40 MG/4 ML VIAL SLOW IVP SCH (14:20)
[2023-08-01] MEDS: HYDROcodone/Acetaminophen 5/325 mg Tablet PO PRN ×2 (14:21→20:51)
[2023-08-01] MEDS: Ondansetron PF 4 MG/2 ML Vial IVP PRN (17:01)
[2023-08-01] MEDS: Atorvastatin Calcium 40 MG TAB PO SCH (20:34)
[2023-08-01] MEDS: Tamsulosin HCl 0.4 MG CAP PO SCH (20:34)
[2023-08-02 04:33] LABS: #Eosinphils 0.3 10x3/uL (0.0-0.5); #Monocytes 1.1 10x3/uL (0.0-1.1); %Basophils 0.2 % (0.0-2.0); %Eosinophils 2.2 % (0.0-6.0); %Lymphocytes 2.7 % (18.0-47.0); %Monocytes 8.4 % (0.0-10.0); %Neutrophils 84.7 % (40.0-75.0); Hematocrit 25.5 % (38.8-50.0); Hemoglobin 8.1 g/dL (13.5-17.5); Mean Corpuscular HGB CONC 31.8 g/dL (32.0-36.0); Mean Corpuscular Hemoglobin 29.8 pg (27.0-33.0); Mean Corpuscular Volume 93.8 fl (81.2-95.1); Mean Platelet Volume 9.3 fl (7.4-10.4); Platelet Count 306 10x3/uL (150-450); Red Blood Cell (RBC) Count 2.72 10x6/uL (4.32-5.72)
[2023-08-02 04:48] LABS: ALT (SGPT) 44 U/L (8-55); AST (SGOT) 42 U/L (5-34); Albumin 2.2 g/dL (3.4-4.8); Alkaline Phosphatase 87 U/L (40-110); Anion Gap 12 mmol/L (10-20); BUN (Urea Nitrogen) 29 mg/dL (8.4-25.7); Bilirubin, Total 0.9 mg/dL (0.2-1.2); Calc. Creatinine Clearance 68 mL/min (70-130); Calcium 7.9 mg/dL (7.8-10.44); Carbon Dioxide 31 mmol/L (23-31); Chloride 99 mmol/L (98-107); Estimated GFR 63; Globulin 2.7 g/dL (2.4-3.5); Glucose 104 mg/dL (83-110); Potassium 4.6 mmol/L (3.5-5.1); Protein, Total 4.9 g/dL (5.8-8.1); Sodium 137 mmol/L (136-145)
[2023-08-02] MEDS: Furosemide 40 MG/4 ML VIAL SLOW IVP SCH ×2 (06:20→14:44)
[2023-08-02] MEDS: predniSONE 5 MG TAB PO SCH (08:11)
[2023-08-02] MEDS: Amiodarone 200 MG TAB PO SCH (09:11)
[2023-08-02] MEDS: Clopidogrel Bisulfate 75 MG TAB PO SCH (09:12)
[2023-08-02] MEDS: Cholecalciferol (Vitamin D3) 400 UNITS TAB PO SCH (09:12)
[2023-08-02] MEDS: Ascorbic Acid 500 mg Chewable Tablet PO SCH (09:12)
[2023-08-02] MEDS: Trihexyphenidyl 2 MG TAB PO SCH ×3 (09:13→21:24)
[2023-08-02] MEDS: Zinc Sulfate 220 MG CAP PO SCH (09:13)
[2023-08-02] MEDS: Senokot S 8.6-50 MG TAB PO SCH ×2 (09:13→21:25)
[2023-08-02] MEDS: guaiFENesin ER 600 MG TAB PO SCH ×2 (09:14→21:24)
[2023-08-02] MEDS: Polyethylene Glycol 3350 17 GM Packet PO SCH (09:14)
[2023-08-02] MEDS: Ondansetron PF 4 MG/2 ML Vial IVP PRN (09:15)
[2023-08-02] MEDS: Ventolin HFA Inhaler 60 PUFF INHALER INH PRN ×2 (09:30→18:15)
[2023-08-02] MEDS: Heparin 5,000 UNITS/ML VIAL SC SCH ×3 (09:33→21:22)
[2023-08-02] MEDS: Morphine 2 MG/ML VIAL SLOW IVP PRN (09:51)
[2023-08-02] MEDS: Tamsulosin HCl 0.4 MG CAP PO SCH (21:24)
[2023-08-02] MEDS: Atorvastatin Calcium 40 MG TAB PO SCH (21:25)
[2023-08-02] MEDS: Acetaminophen/Codeine 30-300mg Tablet PO PRN (21:41)
[2023-08-03 04:37] LABS: #Eosinphils 0.4 10x3/uL (0.0-0.5); #Neutrophils 9.5 10x3/uL (1.5-8.4); %Basophils 0.1 % (0.0-2.0); %Eosinophils 3.5 % (0.0-6.0); %Lymphocytes 3.2 % (18.0-47.0); %Monocytes 8.8 % (0.0-10.0); %Neutrophils 82.9 % (40.0-75.0); Hematocrit 24.1 % (38.8-50.0); Hemoglobin 7.6 g/dL (13.5-17.5); Mean Corpuscular HGB CONC 31.5 g/dL (32.0-36.0); Mean Corpuscular Hemoglobin 29.5 pg (27.0-33.0); Mean Corpuscular Volume 93.4 fl (81.2-95.1); Mean Platelet Volume 9.2 fl (7.4-10.4); Platelet Count 278 10x3/uL (150-450); RBC Distribution Width 15.9 % (11.5-14.5); Red Blood Cell (RBC) Count 2.58 10x6/uL (4.32-5.72); White Blood Cell (WBC) Count 11.5 10x3/uL (3.5-10.5)
[2023-08-03 04:45] LABS: ALT (SGPT) 41 U/L (8-55); AST (SGOT) 36 U/L (5-34); Albumin 2.1 g/dL (3.4-4.8); Alkaline Phosphatase 80 U/L (40-110); Anion Gap 13 mmol/L (10-20); BUN (Urea Nitrogen) 31 mg/dL (8.4-25.7); Bilirubin, Total 0.8 mg/dL (0.2-1.2); Calc. Creatinine Clearance 76 mL/min (70-130); Calcium 7.8 mg/dL (7.8-10.44); Carbon Dioxide 31 mmol/L (23-31); Chloride 97 mmol/L (98-107); Estimated GFR 71; Globulin 2.6 g/dL (2.4-3.5); Glucose 104 mg/dL (83-110); Potassium 4.5 mmol/L (3.5-5.1); Protein, Total 4.7 g/dL (5.8-8.1); Sodium 136 mmol/L (136-145)
[2023-08-03] MEDS: Furosemide 40 MG/4 ML VIAL SLOW IVP SCH ×2 (06:01→14:09)
[2023-08-03] MEDS: predniSONE 5 MG TAB PO SCH (08:28)
[2023-08-03] MEDS: Ascorbic Acid 500 mg Chewable Tablet PO SCH (09:29)
[2023-08-03] MEDS: Amiodarone 200 MG TAB PO SCH (09:29)
[2023-08-03] MEDS: Cholecalciferol (Vitamin D3) 400 UNITS TAB PO SCH (09:29)
[2023-08-03] MEDS: Clopidogrel Bisulfate 75 MG TAB PO SCH (09:30)
[2023-08-03] MEDS: guaiFENesin ER 600 MG TAB PO SCH ×2 (09:30→21:29)
[2023-08-03] MEDS: Zinc Sulfate 220 MG CAP PO SCH (09:31)
[2023-08-03] MEDS: Trihexyphenidyl 2 MG TAB PO SCH ×3 (09:31→21:28)
[2023-08-03] MEDS: Polyethylene Glycol 3350 17 GM Packet PO SCH (09:31)
[2023-08-03] MEDS: Senokot S 8.6-50 MG TAB PO SCH ×2 (09:31→21:29)
[2023-08-03] MEDS: Heparin 5,000 UNITS/ML VIAL SC SCH ×3 (09:35→21:29)
[2023-08-03] MEDS: Morphine 2 MG/ML VIAL SLOW IVP PRN ×2 (10:32→21:55)
[2023-08-03] MEDS: Ondansetron PF 4 MG/2 ML Vial IVP PRN (10:32)
[2023-08-03] MEDS: Ventolin HFA Inhaler 60 PUFF INHALER INH SCH ×4 (10:50→23:02)
[2023-08-03] MEDS ORDERED: Fluconazole 100 MG TAB PO SCH (11:00)
[2023-08-03] MEDS: Acetaminophen/Codeine 30-300mg Tablet PO PRN (17:33)
[2023-08-03] MEDS: Tamsulosin HCl 0.4 MG CAP PO SCH (21:29)
[2023-08-03] MEDS: Atorvastatin Calcium 40 MG TAB PO SCH (21:29)
[2023-08-03] MEDS: Benzonatate 100 MG CAP PO PRN (21:55)
[2023-08-04] MEDS: Ventolin HFA Inhaler 60 PUFF INHALER INH SCH ×6 (03:28→23:08)
[2023-08-04 04:22] LABS: #Eosinphils 0.3 10x3/uL (0.0-0.5); #Neutrophils 8.9 10x3/uL (1.5-8.4); %Basophils 0.1 % (0.0-2.0); %Eosinophils 2.8 % (0.0-6.0); %Lymphocytes 4.5 % (18.0-47.0); Hematocrit 23.9 % (38.8-50.0); Hemoglobin 7.7 g/dL (13.5-17.5); Mean Corpuscular HGB CONC 32.2 g/dL (32.0-36.0); Mean Corpuscular Hemoglobin 30.3 pg (27.0-33.0); Mean Corpuscular Volume 94.1 fl (81.2-95.1); Platelet Count 238 10x3/uL (150-450); RBC Distribution Width 15.9 % (11.5-14.5); Red Blood Cell (RBC) Count 2.54 10x6/uL (4.32-5.72); White Blood Cell (WBC) Count 10.8 10x3/uL (3.5-10.5)
[2023-08-04 04:29] LABS: ALT (SGPT) 53 U/L (8-55); AST (SGOT) 47 U/L (5-34); Albumin 2.1 g/dL (3.4-4.8); Alkaline Phosphatase 79 U/L (40-110); Anion Gap 14 mmol/L (10-20); BUN (Urea Nitrogen) 26 mg/dL (8.4-25.7); Bilirubin, Total 0.7 mg/dL (0.2-1.2); Calc. Creatinine Clearance 84 mL/min (70-130); Calcium 7.8 mg/dL (7.8-10.44); Carbon Dioxide 31 mmol/L (23-31); Chloride 96 mmol/L (98-107); Estimated GFR 80; Globulin 2.8 g/dL (2.4-3.5); Glucose 106 mg/dL (83-110); Potassium 4.5 mmol/L (3.5-5.1); Protein, Total 4.9 g/dL (5.8-8.1); Sodium 136 mmol/L (136-145)
[2023-08-04] MEDS: Furosemide 40 MG/4 ML VIAL SLOW IVP SCH ×2 (05:18→14:51)
[2023-08-04] MEDS: Morphine 2 MG/ML VIAL SLOW IVP PRN (09:43)
[2023-08-04] MEDS: Benzonatate 100 MG CAP PO PRN ×2 (09:44→20:57)
[2023-08-04] MEDS: Fluconazole 100 MG TAB PO SCH (09:44)
[2023-08-04] MEDS: Ondansetron ODT 4 MG TAB PO PRN (09:44)
[2023-08-04] MEDS: Trihexyphenidyl 2 MG TAB PO SCH ×3 (09:45→20:57)
[2023-08-04] MEDS: predniSONE 5 MG TAB PO SCH (09:46)
[2023-08-04] MEDS: Zinc Sulfate 220 MG CAP PO SCH (09:46)
[2023-08-04] MEDS: Heparin 5,000 UNITS/ML VIAL SC SCH ×3 (09:46→20:57)
[2023-08-04] MEDS: Clopidogrel Bisulfate 75 MG TAB PO SCH (09:47)
[2023-08-04] MEDS: Cholecalciferol (Vitamin D3) 400 UNITS TAB PO SCH (09:47)
[2023-08-04] MEDS: Amiodarone 200 MG TAB PO SCH (09:47)
[2023-08-04] MEDS: guaiFENesin ER 600 MG TAB PO SCH ×2 (09:47→20:57)
[2023-08-04] MEDS: Ascorbic Acid 500 mg Chewable Tablet PO SCH (09:48)
[2023-08-04] MEDS: Senokot S 8.6-50 MG TAB PO SCH ×2 (09:48→20:57)
[2023-08-04] MEDS: Polyethylene Glycol 3350 17 GM Packet PO SCH (09:48)
[2023-08-04] MEDS: Ondansetron PF 4 MG/2 ML Vial IVP PRN ×2 (14:50→20:57)
[2023-08-04] MEDS: Tamsulosin HCl 0.4 MG CAP PO SCH (20:57)
[2023-08-04] MEDS: Atorvastatin Calcium 40 MG TAB PO SCH (20:57)
[2023-08-04] MEDS: Acetaminophen 325 MG TAB PO PRN (20:57)
[2023-08-05] MEDS: Ventolin HFA Inhaler 60 PUFF INHALER INH SCH ×6 (03:13→22:35)
[2023-08-05 05:01] LABS: #Eosinphils 0.3 10x3/uL (0.0-0.5); #Monocytes 0.8 10x3/uL (0.0-1.1); #Neutrophils 8.7 10x3/uL (1.5-8.4); %Basophils 0.1 % (0.0-2.0); %Eosinophils 2.6 % (0.0-6.0); %Lymphocytes 4.4 % (18.0-47.0); %Monocytes 8.1 % (0.0-10.0); %Neutrophils 83.5 % (40.0-75.0); Hematocrit 24.3 % (38.8-50.0); Hemoglobin 7.6 g/dL (13.5-17.5); Mean Corpuscular HGB CONC 31.3 g/dL (32.0-36.0); Mean Corpuscular Hemoglobin 29.7 pg (27.0-33.0); Mean Corpuscular Volume 94.9 fl (81.2-95.1); Mean Platelet Volume 9.2 fl (7.4-10.4); Platelet Count 240 10x3/uL (150-450); RBC Distribution Width 15.7 % (11.5-14.5); Red Blood Cell (RBC) Count 2.56 10x6/uL (4.32-5.72); White Blood Cell (WBC) Count 10.4 10x3/uL (3.5-10.5)
[2023-08-05 05:14] LABS: ALT (SGPT) 54 U/L (8-55); AST (SGOT) 44 U/L (5-34); Albumin 2.2 g/dL (3.4-4.8); Alkaline Phosphatase 87 U/L (40-110); Anion Gap 14 mmol/L (10-20); BUN (Urea Nitrogen) 23 mg/dL (8.4-25.7); Bilirubin, Total 0.8 mg/dL (0.2-1.2); Calc. Creatinine Clearance 75 mL/min (70-130); Carbon Dioxide 30 mmol/L (23-31); Chloride 97 mmol/L (98-107); Estimated GFR 71; Globulin 2.6 g/dL (2.4-3.5); Glucose 104 mg/dL (83-110); Potassium 4.6 mmol/L (3.5-5.1); Protein, Total 4.8 g/dL (5.8-8.1); Sodium 136 mmol/L (136-145)
[2023-08-05] MEDS: Furosemide 40 MG/4 ML VIAL SLOW IVP SCH ×2 (06:11→18:11)
[2023-08-05] MEDS: guaiFENesin ER 600 MG TAB PO SCH ×2 (08:20→21:03)
[2023-08-05] MEDS: Ascorbic Acid 500 mg Chewable Tablet PO SCH (08:20)
[2023-08-05] MEDS: Amiodarone 200 MG TAB PO SCH (08:21)
[2023-08-05] MEDS: Calcium Carbonate 600 MG + Vit D TAB PO SCH (08:21)
[2023-08-05] MEDS: Cholecalciferol (Vitamin D3) 400 UNITS TAB PO SCH (08:21)
[2023-08-05] MEDS: Senokot S 8.6-50 MG TAB PO SCH ×2 (08:21→21:04)
[2023-08-05] MEDS: Clopidogrel Bisulfate 75 MG TAB PO SCH (08:22)
[2023-08-05] MEDS: Multivitamin W/ Minerals 1 TAB PO SCH (08:22)
[2023-08-05] MEDS: Fluconazole 100 MG TAB PO SCH (08:23)
[2023-08-05] MEDS: Polyethylene Glycol 3350 17 GM Packet PO SCH (08:24)
[2023-08-05] MEDS: predniSONE 5 MG TAB PO SCH (08:24)
[2023-08-05] MEDS: Trihexyphenidyl 2 MG TAB PO SCH ×3 (08:25→21:04)
[2023-08-05] MEDS: Heparin 5,000 UNITS/ML VIAL SC SCH ×3 (08:26→21:14)
[2023-08-05] MEDS: Zinc Sulfate 220 MG CAP PO SCH (08:33)
[2023-08-05] MEDS: HYDROcodone/Acetaminophen 5/325 mg Tablet PO PRN (11:52)
[2023-08-05] MEDS: Atorvastatin Calcium 40 MG TAB PO SCH (21:04)
[2023-08-05] MEDS: Tamsulosin HCl 0.4 MG CAP PO SCH (21:04)
[2023-08-06] MEDS: Ventolin HFA Inhaler 60 PUFF INHALER INH SCH ×6 (02:36→23:15)
[2023-08-06 03:12] LABS: #Eosinphils 0.3 10x3/uL (0.0-0.5); #Monocytes 0.8 10x3/uL (0.0-1.1); #Neutrophils 9.1 10x3/uL (1.5-8.4); %Basophils 0.2 % (0.0-2.0); %Eosinophils 2.3 % (0.0-6.0); %Lymphocytes 5.7 % (18.0-47.0); %Monocytes 7.1 % (0.0-10.0); %Neutrophils 83.8 % (40.0-75.0); Hematocrit 26.2 % (38.8-50.0); Hemoglobin 8.2 g/dL (13.5-17.5); Mean Corpuscular HGB CONC 31.3 g/dL (32.0-36.0); Mean Corpuscular Hemoglobin 29.5 pg (27.0-33.0); Mean Corpuscular Volume 94.2 fl (81.2-95.1); Platelet Count 245 10x3/uL (150-450); RBC Distribution Width 15.6 % (11.5-14.5); Red Blood Cell (RBC) Count 2.78 10x6/uL (4.32-5.72); White Blood Cell (WBC) Count 10.9 10x3/uL (3.5-10.5)
[2023-08-06 03:44] LABS: ALT (SGPT) 60 U/L (8-55); AST (SGOT) 45 U/L (5-34); Albumin 2.3 g/dL (3.4-4.8); Alkaline Phosphatase 92 U/L (40-110); Anion Gap 14 mmol/L (10-20); BUN (Urea Nitrogen) 24 mg/dL (8.4-25.7); Bilirubin, Total 0.7 mg/dL (0.2-1.2); Calc. Creatinine Clearance 82 mL/min (70-130); Calcium 7.7 mg/dL (7.8-10.44); Carbon Dioxide 30 mmol/L (23-31); Chloride 96 mmol/L (98-107); Estimated GFR 78; Globulin 2.4 g/dL (2.4-3.5); Glucose 110 mg/dL (83-110); Potassium 4.2 mmol/L (3.5-5.1); Protein, Total 4.7 g/dL (5.8-8.1); Sodium 136 mmol/L (136-145)
[2023-08-06] MEDS: Furosemide 40 MG/4 ML VIAL SLOW IVP SCH ×2 (06:35→15:00)
[2023-08-06] MEDS: guaiFENesin ER 600 MG TAB PO SCH ×2 (08:31→21:39)
[2023-08-06] MEDS: Multivitamin W/ Minerals 1 TAB PO SCH (08:31)
[2023-08-06] MEDS: Amiodarone 200 MG TAB PO SCH (08:31)
[2023-08-06] MEDS: Cholecalciferol (Vitamin D3) 400 UNITS TAB PO SCH (08:31)
[2023-08-06] MEDS: Calcium Carbonate 600 MG + Vit D TAB PO SCH (08:31)
[2023-08-06] MEDS: Senokot S 8.6-50 MG TAB PO SCH ×2 (08:31→21:39)
[2023-08-06] MEDS: Polyethylene Glycol 3350 17 GM Packet PO SCH (08:31)
[2023-08-06] MEDS: Ascorbic Acid 500 mg Chewable Tablet PO SCH (08:32)
[2023-08-06] MEDS: Clopidogrel Bisulfate 75 MG TAB PO SCH (08:32)
[2023-08-06] MEDS: Trihexyphenidyl 2 MG TAB PO SCH ×3 (08:39→21:38)
[2023-08-06] MEDS: Fluconazole 100 MG TAB PO SCH (08:40)
[2023-08-06] MEDS: Zinc Sulfate 220 MG CAP PO SCH (08:41)
[2023-08-06] MEDS ORDERED: prednisoLONE 15 MG/5 ML UDCUP PO SCH (09:00)
[2023-08-06] MEDS: Heparin 5,000 UNITS/ML VIAL SC SCH ×3 (09:06→21:39)
[2023-08-06] MEDS: HYDROcodone/Acetaminophen 5/325 mg Tablet PO PRN (11:55)
[2023-08-06] MEDS: Ondansetron ODT 4 MG TAB PO PRN (14:40)
[2023-08-06] MEDS: Ondansetron PF 4 MG/2 ML Vial IVP PRN (16:47)
[2023-08-06] MEDS: Atorvastatin Calcium 40 MG TAB PO SCH (21:39)
[2023-08-06] MEDS: Tamsulosin HCl 0.4 MG CAP PO SCH (21:39)
[2023-08-07] MEDS: Ventolin HFA Inhaler 60 PUFF INHALER INH SCH ×3 (02:40→11:19)
[2023-08-07] MEDS: Furosemide 40 MG/4 ML VIAL SLOW IVP SCH ×2 (05:12→14:34)
[2023-08-07 05:38] LABS: #Eosinphils 0.2 10x3/uL (0.0-0.5); #Monocytes 0.8 10x3/uL (0.0-1.1); #Neutrophils 8.3 10x3/uL (1.5-8.4); %Basophils 0.1 % (0.0-2.0); %Eosinophils 1.9 % (0.0-6.0); %Lymphocytes 5.1 % (18.0-47.0); %Monocytes 8.3 % (0.0-10.0); Hematocrit 24.8 % (38.8-50.0); Hemoglobin 8.1 g/dL (13.5-17.5); Mean Corpuscular HGB CONC 32.7 g/dL (32.0-36.0); Mean Corpuscular Hemoglobin 30.2 pg (27.0-33.0); Mean Corpuscular Volume 92.5 fl (81.2-95.1); Platelet Count 225 10x3/uL (150-450); RBC Distribution Width 15.6 % (11.5-14.5); Red Blood Cell (RBC) Count 2.68 10x6/uL (4.32-5.72); White Blood Cell (WBC) Count 9.8 10x3/uL (3.5-10.5)
[2023-08-07 05:51] LABS: ALT (SGPT) 64 U/L (8-55); AST (SGOT) 52 U/L (5-34); Albumin 2.3 g/dL (3.4-4.8); Alkaline Phosphatase 85 U/L (40-110); Anion Gap 11 mmol/L (10-20); BUN (Urea Nitrogen) 21 mg/dL (8.4-25.7); Bilirubin, Total 0.7 mg/dL (0.2-1.2); Calc. Creatinine Clearance 86 mL/min (70-130); Carbon Dioxide 33 mmol/L (23-31); Chloride 94 mmol/L (98-107); Estimated GFR 82; Glucose 102 mg/dL (83-110); Potassium 4.4 mmol/L (3.5-5.1); Protein, Total 5.3 g/dL (5.8-8.1); Sodium 134 mmol/L (136-145)
[2023-08-07] MEDS: Ondansetron PF 4 MG/2 ML Vial IVP PRN (06:36)
[2023-08-07] MEDS: Clopidogrel Bisulfate 75 MG TAB PO SCH (09:48)
[2023-08-07] MEDS: Calcium Carbonate 600 MG + Vit D TAB PO SCH (09:48)
[2023-08-07] MEDS: Senokot S 8.6-50 MG TAB PO SCH ×2 (09:48→20:27)
[2023-08-07] MEDS: Multivitamin W/ Minerals 1 TAB PO SCH (09:49)
[2023-08-07] MEDS: Heparin 5,000 UNITS/ML VIAL SC SCH ×3 (09:49→20:27)
[2023-08-07] MEDS: Ascorbic Acid 500 mg Chewable Tablet PO SCH (09:49)
[2023-08-07] MEDS: Zinc Sulfate 220 MG CAP PO SCH (09:49)
[2023-08-07] MEDS: Polyethylene Glycol 3350 17 GM Packet PO SCH (09:49)
[2023-08-07] MEDS: Trihexyphenidyl 2 MG TAB PO SCH ×3 (09:50→20:26)
[2023-08-07] MEDS: prednisoLONE 15 MG/5 ML UDCUP PO SCH (09:50)
[2023-08-07] MEDS: guaiFENesin ER 600 MG TAB PO SCH ×2 (09:54→20:27)
[2023-08-07] MEDS: Cholecalciferol (Vitamin D3) 400 UNITS TAB PO SCH (10:20)
[2023-08-07] MEDS: Ipratropium/Albuterol 3 ML NEB NEB SCH ×2 (13:00→19:55)
[2023-08-07] MEDS: Atorvastatin Calcium 40 MG TAB PO SCH (20:27)
[2023-08-07] MEDS: Tamsulosin HCl 0.4 MG CAP PO SCH (20:27)
[2023-08-08] MEDS: Ipratropium/Albuterol 3 ML NEB NEB SCH ×3 (02:25→14:09)
[2023-08-08 03:21] LABS: #Eosinphils 0.1 10x3/uL (0.0-0.5); #Neutrophils 8.3 10x3/uL (1.5-8.4); %Basophils 0.1 % (0.0-2.0); %Eosinophils 0.6 % (0.0-6.0); %Lymphocytes 6.1 % (18.0-47.0); %Monocytes 9.6 % (0.0-10.0); %Neutrophils 82.8 % (40.0-75.0); Hematocrit 26.2 % (38.8-50.0); Hemoglobin 8.6 g/dL (13.5-17.5); Mean Corpuscular HGB CONC 32.8 g/dL (32.0-36.0); Mean Corpuscular Hemoglobin 30.1 pg (27.0-33.0); Mean Corpuscular Volume 91.6 fl (81.2-95.1); Mean Platelet Volume 9.2 fl (7.4-10.4); Platelet Count 214 10x3/uL (150-450); RBC Distribution Width 15.4 % (11.5-14.5); Red Blood Cell (RBC) Count 2.86 10x6/uL (4.32-5.72)
[2023-08-08 04:36] LABS: ALT (SGPT) 67 U/L (8-55); AST (SGOT) 56 U/L (5-34); Albumin 2.5 g/dL (3.4-4.8); Alkaline Phosphatase 91 U/L (40-110); Anion Gap 15 mmol/L (10-20); BUN (Urea Nitrogen) 23 mg/dL (8.4-25.7); Bilirubin, Total 0.7 mg/dL (0.2-1.2); Calc. Creatinine Clearance 77 mL/min (70-130); Calcium 8.2 mg/dL (7.8-10.44); Carbon Dioxide 30 mmol/L (23-31); Chloride 92 mmol/L (98-107); Estimated GFR 72; Globulin 2.9 g/dL (2.4-3.5); Glucose 105 mg/dL (83-110); Potassium 4.1 mmol/L (3.5-5.1); Protein, Total 5.4 g/dL (5.8-8.1); Sodium 133 mmol/L (136-145)
[2023-08-08 04:43] VITALS: TEMP 98.3
[2023-08-08] MEDS: Furosemide 40 MG/4 ML VIAL SLOW IVP SCH ×2 (06:12→13:44)
[2023-08-08] MEDS: guaiFENesin ER 600 MG TAB PO SCH (08:16)
[2023-08-08] MEDS: Ascorbic Acid 500 mg Chewable Tablet PO SCH (08:16)
[2023-08-08] MEDS: Calcium Carbonate 600 MG + Vit D TAB PO SCH (08:16)
[2023-08-08] MEDS: Clopidogrel Bisulfate 75 MG TAB PO SCH (08:16)
[2023-08-08] MEDS: Polyethylene Glycol 3350 17 GM Packet PO SCH (08:16)
[2023-08-08] MEDS: Senokot S 8.6-50 MG TAB PO SCH (08:18)
[2023-08-08] MEDS: Zinc Sulfate 220 MG CAP PO SCH (08:18)
[2023-08-08] MEDS: Heparin 5,000 UNITS/ML VIAL SC SCH (08:19)
[2023-08-08] MEDS: Multivitamin W/ Minerals 1 TAB PO SCH (08:20)
[2023-08-08] MEDS: Trihexyphenidyl 2 MG TAB PO SCH ×2 (08:21→16:32)
[2023-08-08] MEDS: Cholecalciferol (Vitamin D3) 400 UNITS TAB PO SCH (08:21)
[2023-08-08] MEDS: prednisoLONE 15 MG/5 ML UDCUP PO SCH (09:49)
[2023-08-08 16:03] VITALS: BP 128/63
[2023-08-08] MEDS ORDERED: Sotalol HCl 80 MG TAB PO SCH (21:00)
[2023-08-08] MEDS ORDERED: Apixaban 2.5 MG TAB PO SCH (21:00)
[2023-08-09 08:17] LABS: QuantiFERON-TB Gold Plus Indeterminate (Negative)
[2023-08-09 15:20] LABS: Ref Lab Test Ordered KARIUS; Reference Lab Name KARIUS
[2023-08-10 16:37] LABS: A. flavus Negative (Neg:<1:1); A. fumigatus Negative (Neg:<1:1); A. niger Negative (Neg:<1:1)
== END 2023-08-08 19:33 | DRG 246 ==
LOC: CSHERS 10:02 → CSHERHOLD 14:23 → CSHTELE 07-10 13:41 → OBSVTOIN 07-11 12:11 → CSHIMCU 07-22 14:28 → CSHICU 07-22 15:04 → CSHTELE 07-31 12:21 → CSHICU 08-06 21:01
PROVIDERS: ADMIT Internal Medicine; ATTEND Internal Medicine
PROC: 0J970ZZ Drainage of Back Subcutaneous Tissue and Fascia, Open Approach (ICD-10-PCS; principal; 2023-07-11)
PROC: 027034Z Dilation of Coronary Artery, One Artery with Drug-eluting Intraluminal Device, Percutaneous Approach (ICD-10-PCS; 2023-07-11)
PROC: 02703ZZ Dilation of Coronary Artery, One Artery, Percutaneous Approach (ICD-10-PCS; 2023-07-11)
PROC: 4A023N7 Measurement of Cardiac Sampling and Pressure, Left Heart, Percutaneous Approach (ICD-10-PCS; 2023-07-11)
PROC: B2111ZZ Fluoroscopy of Multiple Coronary Arteries using Low Osmolar Contrast (ICD-10-PCS; 2023-07-11)
PROC: B2151ZZ Fluoroscopy of Left Heart using Low Osmolar Contrast (ICD-10-PCS; 2023-07-11)
PROC: B241ZZ3 Ultrasonography of Multiple Coronary Arteries, Intravascular (ICD-10-PCS; 2023-07-11)
PROC: 30233N1 Transfusion of Nonautologous Red Blood Cells into Peripheral Vein, Percutaneous Approach (ICD-10-PCS; 2023-07-13)
PROC: 0DCP7ZZ Extirpation of Matter from Rectum, Via Natural or Artificial Opening (ICD-10-PCS; 2023-07-19)
PROC: 8E0ZXY6 Isolation (ICD-10-PCS; 2023-07-22)
PROC: 5A09357 Assistance with Respiratory Ventilation, Less than 24 Consecutive Hours, Continuous Positive Airway Pressure (ICD-10-PCS; 2023-07-22)
PROC: 5A0955A Assistance with Respiratory Ventilation, Greater than 96 Consecutive Hours, High Flow/Velocity Cannula (ICD-10-PCS; 2023-07-22)
PROC: XW043E5 Introduction of Remdesivir Anti-infective into Central Vein, Percutaneous Approach, New Technology Group 5 (ICD-10-PCS; 2023-07-23)
PROC: 02HV33Z Insertion of Infusion Device into Superior Vena Cava, Percutaneous Approach (ICD-10-PCS; 2023-07-23)
PROC: B548ZZA Ultrasonography of Superior Vena Cava, Guidance (ICD-10-PCS; 2023-07-23)
PROC: 5A0945A Assistance with Respiratory Ventilation, 24-96 Consecutive Hours, High Flow/Velocity Cannula (ICD-10-PCS; 2023-08-07)
PROC: 5A09357 Assistance with Respiratory Ventilation, Less than 24 Consecutive Hours, Continuous Positive Airway Pressure (ICD-10-PCS; 2023-08-08)
DX: I25.10 Atherosclerotic heart disease of native coronary artery without angina pectoris (principal); A40.8 Other streptococcal sepsis; J12.82 Pneumonia due to coronavirus disease 2019; U07.1 COVID-19; J80 Acute respiratory distress syndrome; J90 Pleural effusion, not elsewhere classified; E87.1 Hypo-osmolality and hyponatremia; L76.32 Postprocedural hematoma of skin and subcutaneous tissue following other procedure; T81.41XA Infection following a procedure, superficial incisional surgical site, initial encounter; L03.317 Cellulitis of buttock; K56.7 Ileus, unspecified; J98.11 Atelectasis; I31.39 Other pericardial effusion (noninflammatory); I44.2 Atrioventricular block, complete; B37.0 Candidal stomatitis; R55 Syncope and collapse; I48.0 Paroxysmal atrial fibrillation; G20 Parkinson's disease; Z66 Do not resuscitate; N40.0 Benign prostatic hyperplasia without lower urinary tract symptoms; K21.9 Gastro-esophageal reflux disease without esophagitis; D64.9 Anemia, unspecified; E87.5 Hyperkalemia; R53.81 Other malaise; Y83.8 Other surgical procedures as the cause of abnormal reaction of the patient, or of later complication, without mention of misadventure at the time of the procedure; B95.62 Methicillin resistant Staphylococcus aureus infection as the cause of diseases classified elsewhere; I44.7 Left bundle-branch block, unspecified; K59.00 Constipation, unspecified; Z96.653 Presence of artificial knee joint, bilateral; L89.159 Pressure ulcer of sacral region, unspecified stage; B95.4 Other streptococcus as the cause of diseases classified elsewhere; I10 Essential (primary) hypertension; Z91.048 Other nonmedicinal substance allergy status; Z88.0 Allergy status to penicillin; Z79.899 Other long term (current) drug therapy; I25.2 Old myocardial infarction; Z95.0 Presence of cardiac pacemaker; Z79.01 Long term (current) use of anticoagulants; Z90.89 Acquired absence of other organs; Z90.49 Acquired absence of other specified parts of digestive tract; Z98.1 Arthrodesis status; Z79.02 Long term (current) use of antithrombotics/antiplatelets
CPT/HCPCS: 36415; 36416; 36430; 36569; 70450; 71045; 71250; 71275; 72192; 74018; 74176; 80048; 80053; 80202; 81001; 82728; 83605; 83735; 83880; 84100; 84145; 84484; 85025; 85027; 85379; 85610; 85652; 85730; 86140; 86480; 86606; 86635; 86850; 86900; 86901; 87040; 87070; 87077; 87103; 87149; 87186; 87205; 87324; 87385; 87449; 87633; 92921; 92928; 92978; 92979; 93005; 93010; 93306; 93458; 93880; 94640; 94660; 94664; 94760; 94762; 94799; 96372; 96374; 96375; 96376; 97139; 99152; 99153; C1725; C1751; C1753; C1760; C1769; C1874; C1887; C9600; G0378; J0153; J0248; J0461; J0612; J0692; J0696; J1100; J1644; J1650; J1940; J2001; J2250; J2270; J2272; J2405; J3010; J3370; J3475; J3480; J3490; J7050; J7510; J7512; J7620; J7999; P9016; Q0162; Q9967; U0002